=== PATIENT | female | born 1965 | race Caucasian/White ===

== ENCOUNTER 2017-10-30 12:14 | Inpatient (IN) | payer BC, OTHER ==
[~2017-10-30] VITALS: Ht 170.2 cm; Wt 61.7 kg
[2017-10-30] VITALS (9 sets, daily range): BP systolic 86–109; BP diastolic 46–70
[2017-10-30] MEDS ORDERED: ONDANSETRON HCL INJ 2 MG/ML VIAL IV STA ×2 (12:33→15:21)
[2017-10-30 12:39] LABS: BASOPHILS # (AUTO) 0.1 (0.0-0.1); BASOPHILS % 0.8 % (0.0-1.0); EOSINOPHILS # (AUTO) 0.1 (0.0-0.4); EOSINOPHILS % 1.6 % (0.0-6.0); HEMATOCRIT 48.6 % (34.2-44.1); HEMOGLOBIN 16.8 g/dL (12.0-16.0); LYMPHOCYTES # (AUTO) 1.4 (1.0-3.2); MEAN CORPUSCULAR HEMOGLOBIN 30.5 pg (28-32); MEAN CORPUSCULAR HGB CONC 34.6 g/dL (31-35); MEAN CORPUSCULAR VOLUME 88.4 fL (81-99); MONOCYTES # (AUTO) 0.4 (0.2-0.8); MONOCYTES % 5.3 % (4.4-11.3); PLATELET COUNT 279 x10e3/uL (140-360); RED CELL DISTRIBUTION WIDTH 12.6 % (11.7-14.4)
[2017-10-30] MEDS ORDERED: MORPHINE SULFATE 5 MG/ML VIAL IV ONE (12:45)
[2017-10-30] MEDS ORDERED: SODIUM CHLORIDE 0.9% 1000ML 1,000 ML IV SCH ×3 (12:45→17:10)
[2017-10-30] MEDS ORDERED: DIATRIZOATE MEGL/DIATRIZOA SOD 30 ML BTL PO ONE (12:51)
[2017-10-30 13:03] LABS: BILIRUBIN,URINE NEGATIVE (NEGATIVE); KETONES,URINE 1+ (NEGATIVE); LEUKOCYTE ESTERASE ,URINE NEGATIVE (NEGATIVE); NITRITE,URINE NEGATIVE (NEGATIVE); URINE UROBILINOGEN 0.2 mg/dL (0.2 - 1)
[2017-10-30 13:07] LABS: CLARITY,URINE SL CLOUDY (CLEAR); COLOR,URINE YELLOW (YELLOW); PROTEIN,URINE DIPSTICK 2+ (NEGATIVE)
[2017-10-30 13:15] LABS: ALANINE AMINOTRANSFERASE 34 IU/L (0-55); ALBUMIN/GLOBULIN RATIO 1.2 (0.8-2.0); ALKALINE PHOSPHATASE 49 IU/L (40-150); AMYLASE 64 U/L (25-125); ANION GAP 14.7 mmol/L (8-16); BLOOD UREA NITROGEN 26 mg/dL (7-26); BUN/CREATININE RATIO 25 (6-25); CALCIUM 9.2 mg/dL (8.4-10.2); CARBON DIOXIDE 24 mmol/L (22-29); CHLORIDE 105 mmol/L (98-107); CREATININE, SERUM 1.02 mg/dL (0.57-1.11); EST GLOMERULAR FILTRATION RATE 57 ML/MIN (60-); GLUCOSE 136 mg/dL (74-118); LIPASE 20 U/L (8-78); POTASSIUM 3.7 mmol/L (3.5-5.1); SODIUM 140 mmol/L (136-145)
[2017-10-30] MEDS ORDERED: MORPHINE SULFATE 2 MG/ML SYR IV STA (13:19)
[2017-10-30 13:31] LABS: EPITHELIAL CELLS,URINE FEW /LPF
[2017-10-30] MEDS ORDERED: SEVOFLURANE INHAL SOLN 250 ML PEN BTL ONE (14:28)
[2017-10-30] MEDS ORDERED: PROPOFOL IV EMULSION 10 MG/ML 20 ML VIAL ONE (14:28)
[2017-10-30] MEDS ORDERED: DEXAMETHASONE SOD PHOS INJ 4 MG/ML VIAL ONE (14:28)
[2017-10-30] MEDS ORDERED: ROCURONIUM BROMIDE 10 MG/ML 5ML VIAL ONE (14:28)
[2017-10-30] MEDS ORDERED: ONDANSETRON HCL INJ 2 MG/ML VIAL ONE (14:28)
[2017-10-30] MEDS ORDERED: SUCCINYLCHOLINE 200 MG/10 ML SYR ONE (14:28)
[2017-10-30] MEDS ORDERED: LIDOCAINE HCL 2% LOCAL INJ 5 ML SDV VIAL INJ ONE (14:28)
[2017-10-30] MEDS ORDERED: KETOROLAC TROMETHAMINE 30 MG/ML VIAL ONE (14:28)
[2017-10-30] MEDS ORDERED: ATROPINE SULFATE 1 MG/ML VIAL ONE (14:28)
[2017-10-30] MEDS ORDERED: ACETAMINOPHEN 1000 MG/100 ML IV ONE (14:28)
[2017-10-30] MEDS ORDERED: IOPAMIDOL 370 MG/ML 200 ML INFUS..BTL INJ ONE (15:08)
[2017-10-30] MEDS ORDERED: SODIUM CHLORIDE 0.9% 50ML 50 ML ONE (15:08)
[2017-10-30] MEDS ORDERED: MIDAZOLAM HCL 2 MG/2 ML VIAL ONE (15:20)
[2017-10-30] MEDS ORDERED: FENTANYL CITRATE/PF 100MCG/2 ML INJ ONE (15:20)
[2017-10-30] MEDS ORDERED: HYDROMORPHONE 1MG/1ML INJ IV STA (15:21)
[2017-10-30] MEDS ORDERED: HYDROMORPHONE 2MG/ML INJ IV ONE ×2 (15:45→17:15)
[2017-10-30] MEDS ORDERED: SODIUM CHLORIDE 0.9% 1000ML 1,000 ML ONE (16:17)
[2017-10-30] MEDS ORDERED: SODIUM CHLORIDE 0.9% 1000ML 1,000 ML IV ONE (16:30)
[2017-10-30] MEDS ORDERED: CEFEPIME HCL 2 GM VIAL IV STA (16:32)
[2017-10-30] MEDS ORDERED: METRONIDAZOLE 500MG/NS 100ML 100 ML IV STA (16:32)
--- NOTE | 2017-10-30 16:37 | Diagnostic Imaging Report ---
PROCEDURE:CT ABDOMEN AND PELVIS WITH CONTRAST COMPARISON:None. INDICATIONS:RLQ PAIN TECHNIQUE: Multidetector CT scanning of the abdomen and pelvis was performed after the administration of 100 cc Isovue 370 IV, 30 cc Gastrografin orally. Coronal and sagittal reformations were obtained. Routine protocol performed. Total exam DLP: 213.33 mGy CM FINDINGS: Lung bases: Lung bases clear. Heart size normal. Liver: There is a dominant mass in the posterior right lobe of the liver measuring 7.1 x 5.3 x 6.0 cm. The a 1.9 x 2.0 x 2.1 cm mass is seen adjacent to the falciform ligament, a 1.7 x 0.8 x 1.2 cm mass is seen in the anterior left lobe and a 2.7 x 2.3 x 2.3 cm mass is seen in the dome of the right lobe. There is also a 1.1 x 1.1 x 1.2 cm mass in the dome of the right lobe. These masses are not characterized on this single phase examination. There is no intrahepatic bile duct dilatation. Biliary: The gallbladder is not visualized, likely representing cholecystectomy although there are no surgical clips present. Spleen: No splenomegaly or splenic mass. Pancreas: No mass or duct dilatation. Adrenal Glands: No adrenal nodules Kidneys: No mass, hydronephrosis or calculus. Symmetric enhancement. Gastrointestinal: There is small bowel dilatation with air and stool seen throughout the colon. Findings suggest ileus. Vasculature: Abdominal aorta, IVC and portal system appear unremarkable. Peritoneum/Retroperitoneum: There is moderate pneumoperitoneum. There is a moderate volume of diffuse ascites in the abdomen extending to the pelvis. Bladder: Urinary bladder appears unremarkable. Reproductive organs: The uterus is anteverted. Adnexa are not well seen. Musculoskeletal: No acute or suspicious bony lesion. Superficial surrounding soft tissue unremarkable. The findings were discussed with Dr. Hassan in the emergency room on 10/30/17 at 4:40 PM. CONCLUSION: 1. Pneumoperitoneum, ascites and ileus suggesting viscus perforation. Precise source is undetermined. 2. Several low density masses are seen the liver with minimal peripheral patchy enhancement. These are not characterized on this single phase scan although they may represent hepatic hemangiomata. Recommend liver mass protocol CT or MRI for further evaluation. Dictated by: Carlos Soto M.D. on 10/30/2017 at 16:46 Electronically approved by: Carlos Soto M.D. on 10/30/2017 at 16:46
[2017-10-30] MEDS ORDERED: ONDANSETRON HCL INJ 2 MG/ML VIAL IV PRN (17:15)
[2017-10-30] MEDS ORDERED: HYDROMORPHONE 1MG/1ML INJ IV PRN ×2 (17:15→17:30)
[2017-10-30] MEDS ORDERED: HYDROMORPHONE 2MG/ML INJ ONE ×2 (17:27→19:57)
--- NOTE | 2017-10-30 17:50 | Consultation ---
DATE OF CONSULTATION: October 30, 2017 CHIEF COMPLAINT: Abdominal pain. HISTORY OF PRESENT ILLNESS: The patient is a 52-year-old female who developed sudden onset of lower abdominal pain that started this morning. She got progressively worse as the day was going on. She came to the emergency room where evaluation with CT of the abdomen and pelvis revealed a large amount of free intraperitoneal fluid and moderate pneumoperitoneum. Patient has been having normal bowel movements, although the says that the caliber is decreased. She not noticed any blood in the stool. She has some nausea at this time, no vomiting. She has not had similar pains in the past. PAST MEDICAL HISTORY: Significant for previous cholecystectomy. She denies any chronic medical problems. ALLERGIES: SHE HAS AN ALLERGY TO CODEINE. FAMILY HISTORY: Noncontributory. SOCIAL HISTORY: The patient is a former smoker and quit many years ago. Does not drink alcohol either. She is . REVIEW OF SYSTEMS: As stated above. She has not had any fever or weight loss. PHYSICAL EXAMINATION: GENERAL: The patient is awake and alert. VITAL SIGNS: The heart rate is 98. Blood pressure is 100/60. O2 saturation is 98%. HEENT: Reveals no scleral icterus. NECK: Has no masses. CHEST: Equal breath sounds are clear bilaterally. CARDIOVASCULAR: Regular rate and rhythm with no murmur. ABDOMEN: Diffusely tender with diffuse signs of peritonitis. There is no distention. There is no mass. EXTREMITIES: Have no edema. LAB TESTS: The white blood cell count is 7.93 with a left-shifted differential, hemoglobin 16.8, hematocrit 48.6. Chemistries revealed BUN of 26, creatinine 1.02. Bicarbonate level was normal. Lipase was normal. Liver function tests were normal. ASSESSMENT: This is a 52-year-old female with perforated hollow viscus with peritonitis. She will need surgery to treat the underlying problem. It is not clear whether it is a perforated colon or ulcer, though CT scan is more suggestive of perforated colon. Clinical course is more suggestive of perforated colon. The patient is aware that she may require a temporary colostomy. Proposed surgery was explained to the patient including risks, benefits and alternatives. She understands the procedure. She has had the opportunity to ask questions. Job#: [id number] EV
[2017-10-30] MEDS: METRONIDAZOLE 500MG/NS 100ML 100 ML IV SCH (18:00)
[2017-10-30] MEDS ORDERED: METRONIDAZOLE 500MG/NS 100ML IV SCH (18:00)
[2017-10-30] MEDS ORDERED: DIPHENHYDRAMINE HCL INJ 50 MG/ML VIAL IM PRN (19:00)
[2017-10-30] MEDS ORDERED: ACETAMINOPHEN 1000 MG/100 ML IV PRN (19:00)
[2017-10-30] MEDS ORDERED: NALOXONE HCL INJ 0.4 MG/ML AMP IV PRN (19:00)
[2017-10-30] MEDS: SODIUM CHLORIDE 0.9% 250ML IRRIG IR SCH ×2 (19:00→22:45)
[2017-10-30] MEDS ORDERED: HYDROMORPHONE 0.2MG/ML-SOD CHL 30ML PCA SYRINGE IV ONE (20:03)
[2017-10-30] MEDS: LACTATED RINGER'S 1,000 ML IV SCH (21:08)
[2017-10-30] MEDS ORDERED: CEFEPIME HCL 2 GM VIAL IV SCH (22:00)
[2017-10-30] MEDS ORDERED: SODIUM CHLORIDE 0.9% 100 ML 100 ML ONE (22:23)
[2017-10-31] VITALS (51 sets, daily range): BP systolic 70–117; BP diastolic 40–90
[2017-10-31] MEDS ORDERED: METRONIDAZOLE 500MG/NS 100ML 100 ML IV SCH
[2017-10-31] MEDS: LACTATED RINGER'S 1,000 ML IV SCH ×4 (01:40→22:05)
--- NOTE | 2017-10-31 03:09 | Operative Report ---
DATE OF PROCEDURE: October 30, 2017 PREOPERATIVE DIAGNOSIS: Perforated hollow viscus peritonitis. POSTOPERATIVE DIAGNOSIS: Perforated hollow viscus peritonitis secondary to a perforated sigmoid colon with fecal peritonitis. PROCEDURES 1. Exploratory laparotomy. 2. Sigmoid colon resection with end colostomy Lafleur's pouch. TITLE I TEACHER: None. ANESTHESIA: General endotracheal. INDICATIONS AND FINDINGS: Patient is a 52-year-old female, who had sudden onset of severe lower abdominal pain. Earlier today, workup revealed free intraperitoneal air and fluid. On surgery, there was gross fecal contamination of the peritoneal cavity with solid stool and purulent fluid throughout the peritoneal cavity. There was a large amount stool within the colon. There was a perforation in the mid sigmoid colon, which was about 3 cm in diameter. The small bowel had some inflammatory changes, otherwise appeared viable, as did the remainder of the colon. TECHNIQUE: After adequate general endotracheal anesthesia, patient in supine position, the abdomen was prepped and draped in sterile fashion with Bristol solution. Through lower midline incision, peritoneal cavity was entered. There was brandan fecal contamination of the peritoneal cavity with solid stool and purulent fluid throughout the lower abdomen and throughout the entire peritoneal cavity. Stool was evacuated. The sigmoid colon delivered up and the wound was found to be a large perforation in the mid sigmoid colon with large amount of stool in the proximal colon. There was no mass in the colon; however, there were some changes of diverticulitis and diverticulosis. The segment of colon, which was perforated, was resected off the colon proximally. This was divided with MIKA stapler. The colon distal to this was relatively collapsed, was divided with MIKA stapler also. Mesentery was divided between clamps and also portions divided with EnSeal device and the mid sigmoid colon was removed. The clamped mesenteric vessels were ligated with 2-0 silk. The distal colon was marked with long sutures of 3-0 Prolene. This appeared viable, but there was some solid stool within the distal colon also. The peritoneal cavity was irrigated with large amount of warm saline until the aspirate was clear. Approximately 10 L of fluid was used to irrigate the peritoneal cavity until all the fecal fluid was removed. A shawnee of skin was removed from the left side of the abdomen and then, it was carried down through subcutaneous tissue until the fascia was seen. The fascia was opened in cruciate fashion. Muscle and fibers were split and the peritoneum was opened. The end of the proximal sigmoid colon delivered up into the wound to be matured as a colostomy. Peritoneal cavity was irrigated further with saline. All fluid aspirated and inspected for hemostasis, which was seen to be adequate. The midline fascia was then closed with running suture of #1 PDS, skin and subcutaneous tissue was left open, dressed with saline-moistened gauze and sterile dressing applied. Colostomy was matured. The colon opened and sutures taken from the skin to the opened colon using interrupted sutures of 3-0 Vicryl. The colostomy appliance was then applied. The patient remained stable throughout the procedure. Estimated blood loss was 100 mL. There were no complications. All counts were correct. Patient was taken to the recovery room in satisfactory condition. Job#: [id number] MTDD
[2017-10-31] MEDS: SODIUM CHLORIDE 0.9% 250ML IRRIG IR SCH ×6 (03:53→23:09)
[2017-10-31 06:02] LABS: BASOPHILS % 0.7 % (0.0-1.0); EOSINOPHILS # (AUTO) 0.1 (0.0-0.4); EOSINOPHILS % 2.9 % (0.0-6.0); HEMOGLOBIN 17.3 g/dL (12.0-16.0); LYMPHOCYTES # (AUTO) 0.3 (1.0-3.2); LYMPHOCYTES % 7.1 % (18.0-39.1); MEAN CORPUSCULAR HEMOGLOBIN 30.6 pg (28-32); MEAN CORPUSCULAR HGB CONC 33.9 g/dL (31-35); MEAN CORPUSCULAR VOLUME 90.1 fL (81-99); MONOCYTES # (AUTO) 0.3 (0.2-0.8); NEUTROPHILS # (AUTO) 3.3 (2.1-6.9); NEUTROPHILS % 80.3 % (38.7-80.0); PLATELET COUNT 220 x10e3/uL (140-360); RED BLOOD COUNT 5.66 x10e6/uL (3.6-5.1); RED CELL DISTRIBUTION WIDTH 13.2 % (11.7-14.4)
[2017-10-31 06:26] LABS: ALBUMIN 2.5 g/dL (3.5-5.0); CALCIUM 7.7 mg/dL (8.4-10.2); CREATININE, SERUM 1.72 mg/dL (0.57-1.11)
[2017-10-31] MEDS: METRONIDAZOLE 500MG/NS 100ML 100 ML IV SCH ×5 (06:26→23:59)
[2017-10-31] MEDS: CEFEPIME 2 GM/NS 0.9% 100 ML 100 ML IV SCH ×3 (07:18→22:13)
[2017-10-31] MEDS: HYDROMORPHONE 0.2MG/ML-SOD CHL 30ML PCA SYRINGE IV PRN (12:12)
[2017-10-31 12:21] LABS: INR 1.68; PROTHROMBIN TIME 20.7 seconds (11.9-14.5)
[2017-10-31 12:22] LABS: PARTIAL THROMBOPLASTIN TIME 36.9 seconds (23.8-35.5)
--- NOTE | 2017-10-31 13:02 | Consultation ---
DATE OF CONSULTATION: PULMONARY CRITICAL CARE CONSULTATION CHIEF COMPLAINT: Patient presented with abdominal pain and was found to have pneumoperitoneum, perforated hollow viscus peritonitis, perforated sigmoid colon. HPI: Ms. Ortega is a 52-year-old female. She is admitted to ICU postoperatively. Patient underwent repair of the perforated sigmoid colon. She developed fecal peritonitis with perforated viscus. Patient underwent colostomy and she is in ICU. She does not have any known medical problems. She denies any complaints of chest pain or abdominal pain. She has hypotension. Postoperatively, she has received IV fluids and is on lactated Ringer's at 150 mL an hour and IV antibiotics. She denies any chest pain, nausea, vomiting. PHYSICAL EXAMINATION VITAL SIGNS: Temperature 98.2, pulse of 98, blood pressure 78/60, respiratory rate of 18, O2 sat 96% on 2 liters. SKIN: Warm and dry. CHEST: Clear to auscultation bilaterally. No wheezing. No crackles. HEART: S1, S2 audible. ABDOMEN: Dressed. Patient has a colostomy. EXTREMITIES: No pedal edema. NEUROLOGIC: Awake and alert. LABORATORY DATA: Sodium 141, potassium 5.0, chloride 115, BUN 34, creatinine 1.72. White count of 4.1, hemoglobin 7.3, platelets 220. Gram stain and would culture is growing gram-negative rods. CT of the abdomen and pelvis was done in the emergency room, which is showing pneumoperitoneum. Operative report shows patient underwent repair of sigmoid colon with washout for fecal peritonitis. ASSESSMENT 1. Fecal peritonitis. 2. Perforated sigmoid colon. 3. Hypotension likely septic shock due to fecal peritonitis. PLAN 1. Continue the patient on IV lactated Ringer's as ordered. 2. IV antibiotics, cefepime and Flagyl. 3. Will get a central line. Patient may need vasopressors. Continue the patient on IV lactated Ringer's for now. Diet when okay with surgery. Job#: [id number] ELIDA
--- NOTE | 2017-10-31 13:37 | Diagnostic Imaging Report ---
PROCEDURE: A single AP view of the chest. COMPARISON: None. INDICATIONS: CENTRAL LINE PLACEMENT FINDINGS: Lines/tubes: Right internal jugular temporary central venous catheter with tip projecting over the expected region of the right atrium. Enteric feeding catheter with tip projecting over the expected region of the mid gastric body. Lungs: Bibasilar atelectasis. No parenchymal mass. Pleura: Small bilateral pleural effusions. No pneumothorax. Heart and mediastinum: The heart and the mediastinum are unremarkable. Bones: No acute bony abnormality. IMPRESSION: Small bilateral pleural effusions. Dictated by: Samir Mckeon M.D. on 10/31/2017 at 13:46 Electronically approved by: Samir Mckeon M.D. on 10/31/2017 at 13:46
[2017-10-31] MEDS ORDERED: SODIUM CHLORIDE 0.9% 1000ML 1,000 ML ONE (13:59)
--- NOTE | 2017-10-31 14:01 | Diagnostic Imaging Report ---
PROCEDURE:ULTRASOUND GUIDANCE FOR VASCULAR ACCESS COMPARISON:None. INDICATIONS:Central Line Placement FINDINGS:Right internal jugular vein is noted to be patent. Ultrasound guidance was utilized for access for central venous catheter placement. CONCLUSION:Patent right internal jugular vein. Successful ultrasound guidance for central venous catheter placement. Dictated by: Samir Mckeon M.D. on 10/31/2017 at 14:10 Electronically approved by: Samir Mckeon M.D. on 10/31/2017 at 14:10
--- NOTE | 2017-10-31 14:07 | Diagnostic Imaging Report ---
PROCEDURE:NON-TUNNELLED CVC CATH PLACMNT COMPARISON:None. INDICATIONS: Central Line Placement COMPLICATIONS: None. MEDICATIONS: None. BLOOD LOSS: None. PROCEDURE: The procedure was performed at the bedside in the intensive care unit. Ultrasonographic evaluation demonstrated a patent compressible right internal jugular vein. A safe approach was determined. The right neck was prepped and draped in the usual sterile fashion. 1% lidocaine was infused into the subcutaneous tissues for local anesthesia. Utilizing ultrasound guidance, a 21 gauge needle was advanced into the right internal jugular vein. A 0.018 inch wire was advanced centrally. An access sheath was placed over the wire to secure the vascular access. The wire was upsized to a 0.035 wire. A single dilation was performed over the wire. A triple lumen temporary central venous catheter was advanced over the wire. The wire was removed. The catheter lumens demonstrated proper function with aspiration and flush of sterile saline. The catheter lumens were flushed with sterile saline. The catheter was secured to the skin with 3-0 Ethilon suture. A sterile dressing was applied. There were no immediate complications. The patient tolerated the procedure well. The patient remained in the intensive care unit in stable but critical condition. CONCLUSION: Successful placement of a right internal jugular temporary central venous catheter utilizing ultrasound guidance. Dictated by: Samir Mckeon M.D. on 10/31/2017 at 14:16 Electronically approved by: Samir Mckeon M.D. on 10/31/2017 at 14:16
[2017-10-31] MEDS: SODIUM CHLORIDE 0.9% 1000ML 1,000 ML IV SCH (16:30)
[2017-10-31] MEDS: FAMOTIDINE 20 MG/2 ML VIAL IV SCH (17:18)
[2017-10-31] MEDS: ENOXAPARIN SOD INJ 40 MG/0.4 ML SYR SC SCH (17:18)
[2017-10-31] MEDS: KETOROLAC TROMETHAMINE 30 MG/ML VIAL IV PRN (17:45)
--- NOTE | 2017-10-31 18:03 | History and Physical ---
PRIMARY CARE PHYSICIAN: The patient has no primary care physician. CHIEF COMPLAINT: Abdominal pain. HISTORY OF PRESENT ILLNESS: Ms. Ortega is a 52-year-old lady with no past medical history, very active, works out every day. She presented with sudden onset of lower abdominal, severe sharp, stabbing pain. On evaluation was found to have air and fluid in the peritoneal cavity suggestive of perforated viscus and the patient was taken directly to the OR by the surgeon who found a perforation in the colon, possibly related to diverticulosis or diverticulitis which was oversewn, and the patient was sent to the ICU with an NG tube in place for antibiotic coverage. REVIEW OF SYSTEMS: She denies fever, chills or weight loss. She denies sinus congestion or sore throat. She denies chest pain or palpitation. She denies shortness breath, wheezing or cough. She had abdominal pain as noted. Denied nausea, vomiting or diarrhea. She denied dysuria or flank pain. Denied rash or pruritus. Denies joint pain or swelling. Denied bleeding or bruising. Denies headache, vertigo or loss of consciousness. She denies depression, agitation, homicidal or suicidal ideation. PAST MEDICAL HISTORY: Negative. The patient is on no medications. She has a history of cholecystectomy in the past. ALLERGIES: She has a stated allergy to codeine. FAMILY HISTORY: Unremarkable. No chronic medical illnesses. SOCIAL HISTORY: The patient is . Here with her . She does not smoke, drink or use illegal drugs. She is generally independently functioning. PHYSICAL EXAM: PSYCHIATRIC: She is alert and oriented times 3 with normal mood and affect. CONSTITUTIONAL: She has a normal body habitus. Is in no acute distress. VITAL SIGNS: Blood pressure 88/52. Pulse 90 and regular. Respiratory rate 16. O2 sat 100% with 2 liter nasal cannula. Temperature 98.2. HEENT: Head is atraumatic. Eyes are anicteric with clear conjunctivae. Ears and nares are without erythema or discharge. Oropharynx is clear. NECK: Is supple with no mass or thyromegaly. LYMPHATIC SYSTEM: She has no palpable cervical, axillary or inguinal adenopathy. CARDIOVASCULAR: Her heart has a regular rate and rhythm without murmur or extra heart sounds. She has no peripheral edema. She has palpable dorsal pedal pulse. RESPIRATORY: Lungs are clear to auscultation and percussion with normal respiratory effort. GASTROINTESTINAL: Abdomen is soft without organomegaly or masses. She has mild postoperative tenderness and intact surgical dressing that is clean, dry and intact. CUTANEOUS: Her skin is warm and dry to touch with no rash or skin breakdown. MUSCULOSKELETAL: Joints are normal alignment without erythema or swelling. She has no calf tenderness. NEUROLOGIC: Exam is nonfocal with intact cranial nerves and no motor or sensory deficits. DIAGNOSTIC STUDIES: test was negative. CT scan of the abdomen showed fluid and air in the peritoneum and ileus consistent with a perforated viscus and peritonitis. UA was clear. Chest x-ray showed small bilateral effusions. Peritoneal fluid is growing gram-negative rods. Her CBC showed a white count of 7.93 with 75% neutrophils, 17% lymphocytes, 5% monocytes. Hemoglobin 16.8, hematocrit 48.6 and platelet count 279,000. Her chemistry shows normal electrolytes. CO2 24. Creatinine 1.02. BUN 26. Glucose 136. GFR 57. Calcium is 9.2. After surgery and overnight hydration, the patient's hemoglobin was 17.3, hematocrit 51.0 indicating she is more hemoconcentrated. Her chemistry profile shows a potassium of 5.0. CO2 is 17. Creatinine 1.72. BUN 34 for a GFR of 31. Calcium 7.7. Glucose 110 again indicating volume contraction. Her amylase is 64. Lipase is 20. Transaminases, bilirubin and alkaline phos are normal. Pro time is 20.7 with an INR 1.68. IMPRESSION AND PLAN 1. Perforated colon possibly due to diverticulitis with peritonitis and sepsis. The patient is status post surgical repair currently on IV cefepime and Flagyl with a nasogastric tube in place and n.p.o. 2. For prophylaxis, the patient will be on IV Pepcid and subcutaneous Lovenox. 3. Note, will give an additional one liter bolus, maybe even 2 liter bolus in view of the patient remaining hemoconcentrated in spite of IV fluids. Job#: [id number]
[2017-10-31] MEDS ORDERED: SODIUM CHLORIDE 0.9% 250ML 250 ML ONE (22:04)
[2017-11-01] VITALS (47 sets, daily range): BP systolic 60–131; BP diastolic 39–83
[2017-11-01] MEDS: SODIUM CHLORIDE 0.9% 1000ML 1,000 ML IV SCH (01:49)
[2017-11-01] MEDS: SODIUM CHLORIDE 0.9% 250ML IRRIG IR SCH ×6 (03:00→23:05)
[2017-11-01] MEDS: HYDROMORPHONE 0.2MG/ML-SOD CHL 30ML PCA SYRINGE IV PRN (04:04)
[2017-11-01] MEDS: LACTATED RINGER'S 1,000 ML IV SCH ×2 (04:12→12:03)
[2017-11-01] MEDS: CEFEPIME 2 GM/NS 0.9% 100 ML 100 ML IV SCH ×2 (06:00→14:00)
[2017-11-01 06:21] LABS: HEMATOCRIT 37.4 % (34.2-44.1); MEAN CORPUSCULAR HEMOGLOBIN 30.6 pg (28-32); MEAN CORPUSCULAR HGB CONC 33.4 g/dL (31-35); MEAN CORPUSCULAR VOLUME 91.4 fL (81-99); PLATELET COUNT 145 x10e3/uL (140-360); RED BLOOD COUNT 4.09 x10e6/uL (3.6-5.1); RED CELL DISTRIBUTION WIDTH 13.6 % (11.7-14.4)
[2017-11-01] MEDS: METRONIDAZOLE 500MG/NS 100ML 100 ML IV SCH ×3 (06:30→18:00)
[2017-11-01 06:37] LABS: HEMOGLOBIN 12.5 g/dL (12.0-16.0)
[2017-11-01 06:45] LABS: ALANINE AMINOTRANSFERASE 41 IU/L (0-55); ALBUMIN 2.1 g/dL (3.5-5.0); ALBUMIN/GLOBULIN RATIO 0.9 (0.8-2.0); ALKALINE PHOSPHATASE 40 IU/L (40-150); ANION GAP 10.9 mmol/L (8-16); BLOOD UREA NITROGEN 22 mg/dL (7-26); BUN/CREATININE RATIO 27 (6-25); CALCIUM 7.7 mg/dL (8.4-10.2); CARBON DIOXIDE 23 mmol/L (22-29); CHLORIDE 113 mmol/L (98-107); CREATININE, SERUM 0.83 mg/dL (0.57-1.11); EST GLOMERULAR FILTRATION RATE > 60 ML/MIN (60-); GLUCOSE 88 mg/dL (74-118); POTASSIUM 4.9 mmol/L (3.5-5.1); SODIUM 142 mmol/L (136-145)
[2017-11-01 07:35] LABS: BAND NEUTROPHILS % (MANUAL) 14 %; EOSINOPHILS % (MANUAL) 2 % (0-7); LYMPHOCYTES % (MANUAL) 4 % (19-48); METAMYELOCYTES % (MANUAL) 2 % (0-0); MONOCYTES % (MANUAL) 1 % (3.4-9.0); NEUTROPHILS % (MANUAL) 77 % (40-74); PLATELET ESTIMATE ADEQUATE
[2017-11-01 07:36] LABS: PLATELET MORPHOLOGY COMMENT NORMAL; RBC MORPHOLOGY COMMENT NORMAL
[2017-11-01] MEDS: KETOROLAC TROMETHAMINE 30 MG/ML VIAL IV PRN ×4 (08:51→23:05)
[2017-11-01] MEDS: FAMOTIDINE 20 MG/2 ML VIAL IV SCH ×2 (09:00→17:05)
[2017-11-01] MEDS ORDERED: DEXTROSE 5%/0.45% SOD CHL 1,000 ML IV ONE (16:00)
[2017-11-01] MEDS: DEXTROSE 5%/0.45% SOD CHL 1,000 ML IV SCH (16:59)
[2017-11-01] MEDS: ENOXAPARIN SOD INJ 40 MG/0.4 ML SYR SC SCH (17:05)
[2017-11-01] MEDS: ONDANSETRON HCL INJ 2 MG/ML VIAL IV PRN (20:04)
[2017-11-01] MEDS: CEFEPIME HCL 2 GM VIAL IV SCH (22:38)
[2017-11-02] VITALS (29 sets, daily range): BP systolic 89–133; BP diastolic 31–89
[2017-11-02] MEDS: ONDANSETRON HCL INJ 2 MG/ML VIAL IV PRN ×3 (01:06→11:45)
[2017-11-02] MEDS: METRONIDAZOLE 500MG/NS 100ML 100 ML IV SCH ×4 (01:06→17:14)
[2017-11-02] MEDS: SODIUM CHLORIDE 0.9% 250ML IRRIG IR SCH ×4 (05:16→14:42)
[2017-11-02] MEDS: CEFEPIME HCL 2 GM VIAL IV SCH ×3 (05:16→22:10)
[2017-11-02] MEDS: KETOROLAC TROMETHAMINE 30 MG/ML VIAL IV PRN ×3 (05:17→18:57)
[2017-11-02 05:56] LABS: HEMATOCRIT 33.5 % (34.2-44.1); HEMOGLOBIN 11.3 g/dL (12.0-16.0); MEAN CORPUSCULAR HEMOGLOBIN 30.6 pg (28-32); MEAN CORPUSCULAR HGB CONC 33.7 g/dL (31-35); MEAN CORPUSCULAR VOLUME 90.8 fL (81-99); PLATELET COUNT 136 x10e3/uL (140-360); RED BLOOD COUNT 3.69 x10e6/uL (3.6-5.1); RED CELL DISTRIBUTION WIDTH 13.8 % (11.7-14.4)
[2017-11-02 06:14] LABS: ANION GAP 8.9 mmol/L (8-16); BLOOD UREA NITROGEN 19 mg/dL (7-26); BUN/CREATININE RATIO 27 (6-25); CARBON DIOXIDE 25 mmol/L (22-29); CHLORIDE 112 mmol/L (98-107); CREATININE, SERUM 0.71 mg/dL (0.57-1.11); EST GLOMERULAR FILTRATION RATE > 60 ML/MIN (60-); GLUCOSE 107 mg/dL (74-118); POTASSIUM 3.9 mmol/L (3.5-5.1); SODIUM 142 mmol/L (136-145)
[2017-11-02] MEDS: HYDROMORPHONE 0.2MG/ML-SOD CHL 30ML PCA SYRINGE IV PRN (07:02)
[2017-11-02] MEDS: FAMOTIDINE 20 MG/2 ML VIAL IV SCH ×2 (09:03→17:14)
[2017-11-02] MEDS: DEXTROSE 5%/0.45% SOD CHL 1,000 ML IV SCH ×2 (10:30→18:40)
[2017-11-02] MEDS ORDERED: HYDROCODONE/APAP 7.5MG-325MG 1 EA TAB PO PRN (14:15)
[2017-11-02] MEDS: ENOXAPARIN SOD INJ 40 MG/0.4 ML SYR SC SCH (17:14)
[2017-11-02] MEDS ORDERED: ACETAMINOPHEN 325 MG TAB PO PRN (17:30)
[2017-11-03] VITALS: BP 129/75
[2017-11-03] MEDS: TRAMADOL HCL 50 MG TAB PO PRN ×4 (01:56→22:13)
[2017-11-03] MEDS: ONDANSETRON HCL INJ 2 MG/ML VIAL IV PRN ×4 (02:15→20:36)
[2017-11-03] MEDS: DEXTROSE 5%/0.45% SOD CHL 1,000 ML IV SCH ×2 (02:42→08:00)
[2017-11-03 04:00] VITALS: BP 124/75
[2017-11-03] MEDS: KETOROLAC TROMETHAMINE 30 MG/ML VIAL IV PRN ×3 (05:03→20:36)
[2017-11-03] MEDS: METRONIDAZOLE 500MG/NS 100ML 100 ML IV SCH ×5 (05:41→23:44)
[2017-11-03] MEDS: CEFEPIME HCL 2 GM VIAL IV SCH ×3 (05:41→21:43)
[2017-11-03 07:02] LABS: BASOPHILS % 0.5 % (0.0-1.0); EOSINOPHILS # (AUTO) 0.1 (0.0-0.4); EOSINOPHILS % 1.3 % (0.0-6.0); HEMATOCRIT 33.6 % (34.2-44.1); HEMOGLOBIN 11.4 g/dL (12.0-16.0); LYMPHOCYTES # (AUTO) 0.5 (1.0-3.2); LYMPHOCYTES % 6.7 % (18.0-39.1); MEAN CORPUSCULAR HEMOGLOBIN 30.3 pg (28-32); MEAN CORPUSCULAR HGB CONC 33.9 g/dL (31-35); MEAN CORPUSCULAR VOLUME 89.4 fL (81-99); MONOCYTES # (AUTO) 0.5 (0.2-0.8); NEUTROPHILS # (AUTO) 6.6 (2.1-6.9); NEUTROPHILS % 84.7 % (38.7-80.0); PLATELET COUNT 160 x10e3/uL (140-360); RED BLOOD COUNT 3.76 x10e6/uL (3.6-5.1); RED CELL DISTRIBUTION WIDTH 13.7 % (11.7-14.4)
[2017-11-03 07:36] LABS: ANION GAP 7.3 mmol/L (8-16); BLOOD UREA NITROGEN 17 mg/dL (7-26); BUN/CREATININE RATIO 25 (6-25); CALCIUM 8.1 mg/dL (8.4-10.2); CARBON DIOXIDE 26 mmol/L (22-29); CHLORIDE 111 mmol/L (98-107); CREATININE, SERUM 0.69 mg/dL (0.57-1.11); EST GLOMERULAR FILTRATION RATE > 60 ML/MIN (60-); GLUCOSE 95 mg/dL (74-118); MAGNESIUM 1.4 MG/DL (1.3-2.1); POTASSIUM 3.3 mmol/L (3.5-5.1); SODIUM 141 mmol/L (136-145)
[2017-11-03] MEDS: FAMOTIDINE 20 MG/2 ML VIAL IV SCH ×2 (07:56→17:13)
[2017-11-03 08:13] VITALS: BP 113/69
[2017-11-03] MEDS ORDERED: POTASSIUM CHLORIDE 20 MEQ TAB CR PO STA (12:14)
[2017-11-03] MEDS: GUAIFENESIN 600 MG TAB PO SCH ×3 (12:15→23:44)
[2017-11-03] MEDS ORDERED: GUAIFENESIN 600 MG TAB PO PRN (12:15)
[2017-11-03 12:20] VITALS: BP 122/78
[2017-11-03] MEDS ORDERED: FUROSEMIDE INJ 10 MG/ML 4 ML VIAL IV ONE (13:00)
[2017-11-03] MEDS ORDERED: CALCIUM GLUCONATE 10% INJ 4.65 MEQ in SODIUM CHLORIDE 0.9% 50ML 50 ML IV ONE (13:00)
[2017-11-03] MEDS ORDERED: POTASSIUM CHL 40 MEQ in WATER STERILE 10ML VIAL 80 ML IV ONE (13:30)
[2017-11-03] MEDS ORDERED: POTASSIUM CHLORIDE 20MEQ/100ML 100 ML IV ONE (14:00)
[2017-11-03 16:04] VITALS: BP 126/67
[2017-11-03] MEDS: CALCIUM CARBONATE 500 MG CHEWABLE TABS PO SCH (17:00)
[2017-11-03] MEDS: ASCORBIC ACID 500 MG TAB PO SCH (17:00)
[2017-11-03] MEDS: FERROUS SULFATE 325 MG TAB PO SCH (17:00)
[2017-11-03] MEDS: ENOXAPARIN SOD INJ 40 MG/0.4 ML SYR SC SCH (17:13)
[2017-11-03 20:06] VITALS: BP 124/69
[2017-11-03] MEDS ORDERED: SODIUM CHLORIDE 0.9% 250ML 250 ML ONE (23:44)
[2017-11-04] VITALS: BP 130/71
[2017-11-04 04:00] VITALS: BP 143/81
[2017-11-04] MEDS: KETOROLAC TROMETHAMINE 30 MG/ML VIAL IV PRN ×4 (04:54→23:30)
[2017-11-04 05:06] LABS: BASOPHILS # (AUTO) 0.1 (0.0-0.1); BASOPHILS % 0.9 % (0.0-1.0); EOSINOPHILS # (AUTO) 0.1 (0.0-0.4); EOSINOPHILS % 1.5 % (0.0-6.0); HEMATOCRIT 36.1 % (34.2-44.1); HEMOGLOBIN 12.5 g/dL (12.0-16.0); LYMPHOCYTES # (AUTO) 0.8 (1.0-3.2); LYMPHOCYTES % 8.4 % (18.0-39.1); MEAN CORPUSCULAR HEMOGLOBIN 30.4 pg (28-32); MEAN CORPUSCULAR HGB CONC 34.6 g/dL (31-35); MEAN CORPUSCULAR VOLUME 87.8 fL (81-99); MONOCYTES # (AUTO) 1.1 (0.2-0.8); MONOCYTES % 12.8 % (4.4-11.3); NEUTROPHILS # (AUTO) 6.6 (2.1-6.9); NEUTROPHILS % 73.2 % (38.7-80.0); PLATELET COUNT 176 x10e3/uL (140-360); RED BLOOD COUNT 4.11 x10e6/uL (3.6-5.1); RED CELL DISTRIBUTION WIDTH 13.7 % (11.7-14.4)
[2017-11-04 05:20] LABS: ANION GAP 7.4 mmol/L (8-16); BLOOD UREA NITROGEN 15 mg/dL (7-26); BUN/CREATININE RATIO 23 (6-25); CALCIUM 7.9 mg/dL (8.4-10.2); CARBON DIOXIDE 25 mmol/L (22-29); CHLORIDE 107 mmol/L (98-107); CREATININE, SERUM 0.66 mg/dL (0.57-1.11); EST GLOMERULAR FILTRATION RATE > 60 ML/MIN (60-); GLUCOSE 84 mg/dL (74-118); POTASSIUM 3.4 mmol/L (3.5-5.1); SODIUM 136 mmol/L (136-145)
[2017-11-04 05:26] LABS: MAGNESIUM 1.1 MG/DL (1.3-2.1)
[2017-11-04] MEDS: METRONIDAZOLE 500MG/NS 100ML 100 ML IV SCH ×4 (05:39→23:30)
[2017-11-04] MEDS: CEFEPIME HCL 2 GM VIAL IV SCH ×3 (05:39→21:33)
[2017-11-04] MEDS: GUAIFENESIN 600 MG TAB PO SCH ×4 (05:39→23:30)
[2017-11-04] MEDS ORDERED: POTASSIUM CHLORIDE 20MEQ/100ML 100 ML IV ONE ×2 (06:45→09:15)
[2017-11-04] MEDS ORDERED: MAGNESIUM SULFATE 2GM/50ML 50 ML IV ONE ×2 (06:45→09:15)
[2017-11-04 08:36] LABS: BAND NEUTROPHILS % (MANUAL) 4 %; EOSINOPHILS % (MANUAL) 4 % (0-7); LYMPHOCYTES % (MANUAL) 7 % (19-48); METAMYELOCYTES % (MANUAL) 2 % (0-0); MONOCYTES % (MANUAL) 11 % (3.4-9.0); MYELOCYTES % (MANUAL) 1 % (0-0); NEUTROPHILS % (MANUAL) 67 % (40-74)
[2017-11-04 08:38] LABS: ANISOCYTOSIS SLIGHT; PLATELET ESTIMATE ADEQUATE; PLATELET MORPHOLOGY COMMENT FEW GIANT; POIKILOCYTOSIS SLIGHT
[2017-11-04 08:43] LABS: RBC MORPHOLOGY COMMENT NORMAL
[2017-11-04] MEDS: MULTIVITAMINS/MINERALS TAB PO SCH (09:00)
[2017-11-04] MEDS: FAMOTIDINE 20 MG/2 ML VIAL IV SCH ×2 (09:00→17:53)
[2017-11-04] MEDS: FERROUS SULFATE 325 MG TAB PO SCH ×2 (09:00→17:53)
[2017-11-04] MEDS: CALCIUM CARBONATE 500 MG CHEWABLE TABS PO SCH ×2 (09:01→17:53)
[2017-11-04] MEDS: ASCORBIC ACID 500 MG TAB PO SCH ×2 (09:01→17:53)
[2017-11-04] MEDS: TRAMADOL HCL 50 MG TAB PO PRN ×2 (09:18→20:03)
[2017-11-04 12:00] VITALS: BP 145/76
--- NOTE | 2017-11-04 14:42 | Diagnostic Imaging Report ---
Two view chest x-ray INDICATION: Right shoulder pain COMPARISON: 10/31/2017. FINDINGS: The cardiomediastinal silhouette is mildly enlarged and stable. A right subclavian catheter terminates in the right atrium. There is no evidence of hilar lymphadenopathy. The pulmonary vascular markings are normal. Bilateral costophrenic angle blunting has progressed. There is bibasilar atelectasis. Evaluation of the osseous structures demonstrates no focal abnormality. IMPRESSION: Bibasilar pleural effusions and atelectasis. No vascular congestion. Signed by: Dr. Nato Lopez MD on 11/04/2017 2:38 PM
[2017-11-04 16:31] VITALS: BP 131/76
[2017-11-04] MEDS: ENOXAPARIN SOD INJ 40 MG/0.4 ML SYR SC SCH (17:53)
[2017-11-04] MEDS: ONDANSETRON HCL INJ 2 MG/ML VIAL IV PRN ×2 (17:56→21:33)
[2017-11-04 20:00] VITALS: BP 137/75
[2017-11-04] MEDS ORDERED: SODIUM CHLORIDE 0.9% 50ML 50 ML ONE (23:19)
[2017-11-05] VITALS (10 sets, daily range): BP systolic 122–144; BP diastolic 60–86
[2017-11-05] MEDS: METRONIDAZOLE 500MG/NS 100ML 100 ML IV SCH ×4 (05:31→23:59)
[2017-11-05] MEDS: CEFEPIME HCL 2 GM VIAL IV SCH (05:31)
[2017-11-05] MEDS: GUAIFENESIN 600 MG TAB PO SCH ×4 (05:31→23:59)
[2017-11-05] MEDS: KETOROLAC TROMETHAMINE 30 MG/ML VIAL IV PRN ×3 (05:32→21:15)
[2017-11-05 07:41] LABS: ANION GAP 9.5 mmol/L (8-16); BASOPHILS # (AUTO) 0.1 (0.0-0.1); BASOPHILS % 0.7 % (0.0-1.0); BLOOD UREA NITROGEN 16 mg/dL (7-26); BUN/CREATININE RATIO 25 (6-25); CALCIUM 7.6 mg/dL (8.4-10.2); CARBON DIOXIDE 24 mmol/L (22-29); CHLORIDE 110 mmol/L (98-107); CREATININE, SERUM 0.63 mg/dL (0.57-1.11); EOSINOPHILS # (AUTO) 0.2 (0.0-0.4); EOSINOPHILS % 1.3 % (0.0-6.0); EST GLOMERULAR FILTRATION RATE > 60 ML/MIN (60-); GLUCOSE 95 mg/dL (74-118); HEMATOCRIT 34.6 % (34.2-44.1); LYMPHOCYTES # (AUTO) 0.8 (1.0-3.2); LYMPHOCYTES % 6.4 % (18.0-39.1); MAGNESIUM 1.4 MG/DL (1.3-2.1); MEAN CORPUSCULAR HEMOGLOBIN 30.6 pg (28-32); MEAN CORPUSCULAR HGB CONC 34.7 g/dL (31-35); MEAN CORPUSCULAR VOLUME 88.3 fL (81-99); MONOCYTES # (AUTO) 1.4 (0.2-0.8); MONOCYTES % 11.3 % (4.4-11.3); NEUTROPHILS # (AUTO) 9.2 (2.1-6.9); NEUTROPHILS % 74.9 % (38.7-80.0); PLATELET COUNT 197 x10e3/uL (140-360); POTASSIUM 3.5 mmol/L (3.5-5.1); RED BLOOD COUNT 3.92 x10e6/uL (3.6-5.1); SODIUM 140 mmol/L (136-145)
[2017-11-05] MEDS: FERROUS SULFATE 325 MG TAB PO SCH ×2 (08:54→18:06)
[2017-11-05] MEDS: MULTIVITAMINS/MINERALS TAB PO SCH (08:55)
[2017-11-05] MEDS: CALCIUM CARBONATE 500 MG CHEWABLE TABS PO SCH ×2 (08:55→18:06)
[2017-11-05] MEDS: ASCORBIC ACID 500 MG TAB PO SCH ×2 (08:55→18:06)
[2017-11-05] MEDS: FAMOTIDINE 20 MG/2 ML VIAL IV SCH ×2 (08:55→18:06)
[2017-11-05] MEDS: ONDANSETRON HCL INJ 2 MG/ML VIAL IV PRN ×3 (09:15→18:28)
[2017-11-05] MEDS ORDERED: POTASSIUM CHLORIDE IV ONE (09:15)
[2017-11-05] MEDS: TRAMADOL HCL 50 MG TAB PO PRN ×3 (09:15→19:52)
[2017-11-05] MEDS ORDERED: SODIUM CHLORIDE 0.9% IV ONE (09:15)
[2017-11-05] MEDS ORDERED: FUROSEMIDE INJ 10 MG/ML 4 ML VIAL IV ONE (09:30)
--- NOTE | 2017-11-05 13:24 | Consultation ---
DATE OF CONSULTATION: REASON FOR CONSULTATION: Leukocytosis, perforated colon, and peritonitis. Recommendation for antibiotic. HISTORY OF PRESENT ILLNESS: This patient, who is a very pleasant 52-year-old white female, comes into the hospital with acute abdominal pain. Patient was admitted to [facility]. The patient came in on October 30 with abdominal pain that started the morning of admission. She came to the emergency room. CT scan showed a large amount of free intraperitoneal fluid with moderate pneumoperitoneum. At that time, the patient was seen by Dr. Baird and underwent surgery. The patient, who has history of cholecystectomy before and former smoking, on October 31 underwent surgery for exploratory laparotomy, sigmoid colon resection and end-colostomy Yas pouch. Her abdominal wound was left open. The patient has been here since then. She states she is feeling better. It was noted today that her white count jumped up to 12,000, so infectious disease was consulted. The patient has been on cefepime and Flagyl since admission. She states that overall she is feeling better. She is thought to have some issues walking. PAST MEDICAL HISTORY: Negative. PAST SURGICAL HISTORY: Mentioned above. ALLERGIES: CODEINE. SOCIAL HISTORY: Currently, no smoking, no drug abuse, no alcohol abuse. FAMILY HISTORY: Noncontributory. REVIEW OF SYSTEMS HEENT: There is no headache, visual changes or hearing changes. GI: There is no nausea, no vomiting, no diarrhea currently. CARDIAC: No chest pain or arrhythmia. PULMONARY: Negative. JOINTS: Negative. SKIN: No rash. OTHER: All systems are within normal limits at the present time. PHYSICAL EXAMINATION GENERAL: She is currently alert and oriented, does not seem to be in acute distress. VITALS: Stable, afebrile. HEENT: She is normocephalic, not icteric. NECK: Supple. No JVD. No lymphadenopathy. No thyromegaly. CHEST: Clear bilateral. COR: S1 and S2. No murmur. ABDOMEN: Soft. Bowel sounds present. She did have a colostomy. Her midline wound looked clean and deep. CULTURES: She grew E. coli, which was pansensitive, as well as Klebsiella pneumonia, which was also pansensitive. LABORATORY DATA: On admission, white count 7.48, today 12.32. Hemoglobin 12. Her sodium 142, potassium 3.9, creatinine 0.7, magnesium low at 1.1. MEDICATIONS: List reviewed. She is on Ultram, Zofran, vitamin C, Tums, Pepcid, cefepime 2 grams q.8 h., metronidazole. IMPRESSION 1. This patient, who came with peritonitis and had perforation of her colon, seems to be better clinically. 2. Leukocytosis, probably reactive. I suggest to decrease the cefepime dose to 1 g q.8 h. Clinically, she looks really good, which, if she continues to improve clinically, we can switch her to oral antibiotic, but I would like to see what happens with her WBC. I would suggest to recheck it again. 3. Continue with PT, OT and wound care. Will follow with you. Thank you for asking me to see this patient. Job#: [id number]
[2017-11-05] MEDS: CEFEPIME HCL 1 GM VIAL IV SCH ×2 (15:05→21:15)
[2017-11-05] MEDS: ENOXAPARIN SOD INJ 40 MG/0.4 ML SYR SC SCH (18:06)
[2017-11-06] VITALS (7 sets, daily range): BP systolic 117–134; BP diastolic 57–66
[2017-11-06] MEDS: METRONIDAZOLE 500MG/NS 100ML 100 ML IV SCH ×3 (06:16→19:50)
[2017-11-06] MEDS: GUAIFENESIN 600 MG TAB PO SCH ×3 (06:16→17:45)
[2017-11-06] MEDS: CEFEPIME HCL 1 GM VIAL IV SCH ×3 (06:16→22:19)
[2017-11-06] MEDS: TRAMADOL HCL 50 MG TAB PO PRN ×5 (06:17→22:58)
[2017-11-06] MEDS: ONDANSETRON HCL INJ 2 MG/ML VIAL IV PRN (06:17)
[2017-11-06 06:30] LABS: BASOPHILS # (AUTO) 0.1 (0.0-0.1); BASOPHILS % 0.5 % (0.0-1.0); EOSINOPHILS # (AUTO) 0.2 (0.0-0.4); EOSINOPHILS % 1.3 % (0.0-6.0); HEMATOCRIT 33.4 % (34.2-44.1); HEMOGLOBIN 11.6 g/dL (12.0-16.0); LYMPHOCYTES # (AUTO) 1.2 (1.0-3.2); LYMPHOCYTES % 7.3 % (18.0-39.1); MEAN CORPUSCULAR HEMOGLOBIN 30.5 pg (28-32); MEAN CORPUSCULAR HGB CONC 34.7 g/dL (31-35); MEAN CORPUSCULAR VOLUME 87.9 fL (81-99); MONOCYTES # (AUTO) 1.5 (0.2-0.8); MONOCYTES % 9.3 % (4.4-11.3); NEUTROPHILS # (AUTO) 12.4 (2.1-6.9); NEUTROPHILS % 75.6 % (38.7-80.0); PLATELET COUNT 244 x10e3/uL (140-360)
[2017-11-06 06:39] LABS: ANION GAP 10.6 mmol/L (8-16); BLOOD UREA NITROGEN 16 mg/dL (7-26); BUN/CREATININE RATIO 25 (6-25); CALCIUM 7.7 mg/dL (8.4-10.2); CARBON DIOXIDE 26 mmol/L (22-29); CHLORIDE 107 mmol/L (98-107); CREATININE, SERUM 0.63 mg/dL (0.57-1.11); EST GLOMERULAR FILTRATION RATE > 60 ML/MIN (60-); GLUCOSE 106 mg/dL (74-118); MAGNESIUM 1.5 MG/DL (1.3-2.1); POTASSIUM 3.6 mmol/L (3.5-5.1); SODIUM 140 mmol/L (136-145)
[2017-11-06] MEDS ORDERED: FUROSEMIDE INJ 10 MG/ML 4 ML VIAL IV ONE (06:50)
[2017-11-06] MEDS ORDERED: CALCIUM GLUCONATE 10% INJ 4.65 MEQ in SODIUM CHLORIDE 0.9% 50ML 50 ML IV ONE ×2 (08:30→20:00)
[2017-11-06] MEDS ORDERED: METOCLOPRAMIDE HCL 10 MG/2ML VIAL ONE (08:37)
[2017-11-06] MEDS: MULTIVITAMINS/MINERALS TAB PO SCH (09:00)
[2017-11-06] MEDS: FERROUS SULFATE 325 MG TAB PO SCH ×2 (09:00→17:45)
[2017-11-06] MEDS: ASCORBIC ACID 500 MG TAB PO SCH ×2 (09:00→17:45)
[2017-11-06] MEDS: FAMOTIDINE 20 MG/2 ML VIAL IV SCH ×2 (09:00→17:00)
[2017-11-06] MEDS: CALCIUM CARBONATE 500 MG CHEWABLE TABS PO SCH ×2 (09:00→17:45)
[2017-11-06 10:21] LABS: BAND NEUTROPHILS % (MANUAL) 3 %; EOSINOPHILS % (MANUAL) 1 % (0-7); LYMPHOCYTES % (MANUAL) 3 % (19-48); MONOCYTES % (MANUAL) 10 % (3.4-9.0); NEUTROPHILS % (MANUAL) 81 % (40-74); PLATELET ESTIMATE ADEQUATE; RBC MORPHOLOGY COMMENT NORMAL; TOXIC GRANULATION SLIGHT
[2017-11-06 10:22] LABS: ANISOCYTOSIS SLIGHT; PLATELET MORPHOLOGY COMMENT FEW LARGE
[2017-11-06] MEDS: METOCLOPRAMIDE HCL 10 MG/2ML VIAL IV SCH ×3 (12:00→21:21)
[2017-11-06] MEDS ORDERED: VANCOMYCIN 1GM/NS 250 ML 250 ML IV SCH (12:15)
[2017-11-06] MEDS: KETOROLAC TROMETHAMINE 30 MG/ML VIAL IV PRN ×2 (13:26→20:34)
--- NOTE | 2017-11-06 14:46 | Diagnostic Imaging Report ---
PROCEDURE: CT scan of the chest WITH intravenous contrast, using PE protocol. TECHNIQUE: The chest was scanned utilizing a multidetector helical scanner from the lung apex through the level of the adrenal glands after the IV administration of 100 cc of Isovue 370. Coronal and sagittal multiplanar reformations were obtained. Pulmonary angiogram protocol was performed. Total DLP: 438.95 mGy-cm COMPARISON: None. INDICATIONS: SOB FINDINGS: Lines/tubes: None. Lungs and Airways: No central pulmonary emboli. Bilateral lower lobe subsegmental compressive atelectasis. Pleura: Small bilateral pleural effusions. Heart and mediastinum: The thyroid gland is normal. No significant mediastinal, hilar or axillary lymphadenopathy is seen. The heart and pericardium are within normal limits. Main pulmonary artery measures 2.5 cm. Ascending aorta measures 2.9 cm. Soft tissues: Normal. Abdomen: Limited contrast-enhanced views of the upper abdomen show no abnormality within the visualized liver, spleen, pancreas, or kidneys. The adrenal glands are normal. Bones: The visualized bony thorax is within normal limits. IMPRESSION: 1. Small bilateral pleural effusions with associated subsegmental compressive atelectasis of both lower lobes. 2. No pulmonary emboli. Dictated by: Guilherme Mo M.D. on 11/06/2017 at 14:54 Electronically approved by: Guilherme Mo M.D. on 11/06/2017 at 14:54
[2017-11-06] MEDS ORDERED: SODIUM CHLORIDE 0.9% 250ML 250 ML ONE (17:00)
[2017-11-06] MEDS: VANCOMYCIN 1GM/NS 250 ML 250 ML IV SCH (17:00)
[2017-11-06] MEDS: ENOXAPARIN SOD INJ 40 MG/0.4 ML SYR SC SCH (17:00)
[2017-11-07] VITALS (7 sets, daily range): BP systolic 136–149; BP diastolic 67–81
[2017-11-07] MEDS: METRONIDAZOLE 500MG/NS 100ML 100 ML IV SCH ×4 (00:43→19:23)
[2017-11-07] MEDS: KETOROLAC TROMETHAMINE 30 MG/ML VIAL IV PRN (02:35)
[2017-11-07] MEDS: VANCOMYCIN 1GM/NS 250 ML 250 ML IV SCH ×2 (04:30→17:32)
[2017-11-07] MEDS: TRAMADOL HCL 50 MG TAB PO PRN (04:48)
[2017-11-07] MEDS: CEFEPIME HCL 1 GM VIAL IV SCH ×3 (05:42→21:41)
[2017-11-07] MEDS: GUAIFENESIN 600 MG TAB PO SCH ×5 (05:43→17:52)
[2017-11-07 05:44] LABS: BASOPHILS # (AUTO) 0.1 (0.0-0.1); BASOPHILS % 0.8 % (0.0-1.0); EOSINOPHILS # (AUTO) 0.2 (0.0-0.4); EOSINOPHILS % 1.1 % (0.0-6.0); HEMOGLOBIN 12.3 g/dL (12.0-16.0); LYMPHOCYTES # (AUTO) 1.3 (1.0-3.2); LYMPHOCYTES % 8.5 % (18.0-39.1); MEAN CORPUSCULAR HEMOGLOBIN 29.9 pg (28-32); MEAN CORPUSCULAR HGB CONC 34.2 g/dL (31-35); MEAN CORPUSCULAR VOLUME 87.4 fL (81-99); MONOCYTES # (AUTO) 1.3 (0.2-0.8); MONOCYTES % 8.5 % (4.4-11.3); NEUTROPHILS # (AUTO) 11.8 (2.1-6.9); PLATELET COUNT 325 x10e3/uL (140-360); RED BLOOD COUNT 4.12 x10e6/uL (3.6-5.1); RED CELL DISTRIBUTION WIDTH 14.1 % (11.7-14.4)
[2017-11-07 06:02] LABS: ANION GAP 10.6 mmol/L (8-16); BLOOD UREA NITROGEN 14 mg/dL (7-26); BUN/CREATININE RATIO 21 (6-25); CALCIUM 8.1 mg/dL (8.4-10.2); CARBON DIOXIDE 26 mmol/L (22-29); CHLORIDE 107 mmol/L (98-107); CREATININE, SERUM 0.67 mg/dL (0.57-1.11); EST GLOMERULAR FILTRATION RATE > 60 ML/MIN (60-); GLUCOSE 111 mg/dL (74-118); POTASSIUM 3.6 mmol/L (3.5-5.1); SODIUM 140 mmol/L (136-145)
[2017-11-07] MEDS: MORPHINE SULFATE 2 MG/ML SYR IV PRN ×4 (06:26→19:40)
[2017-11-07] MEDS: MULTIVITAMINS/MINERALS TAB PO SCH (08:27)
[2017-11-07] MEDS: METOCLOPRAMIDE HCL 10 MG/2ML VIAL IV SCH ×4 (08:27→21:41)
[2017-11-07] MEDS: FAMOTIDINE 20 MG/2 ML VIAL IV SCH ×2 (08:27→17:52)
[2017-11-07] MEDS: ASCORBIC ACID 500 MG TAB PO SCH ×2 (08:27→17:52)
[2017-11-07] MEDS: FERROUS SULFATE 325 MG TAB PO SCH ×2 (08:27→17:52)
[2017-11-07] MEDS: CALCIUM CARBONATE 500 MG CHEWABLE TABS PO SCH ×2 (08:27→17:52)
[2017-11-07 08:35] LABS: BAND NEUTROPHILS % (MANUAL) 1 %; BLAST CELLS % MANUAL 1; EOSINOPHILS % (MANUAL) 2 % (0-7); LYMPHOCYTES % (MANUAL) 5 % (19-48); METAMYELOCYTES % (MANUAL) 1 % (0-0); MONOCYTES % (MANUAL) 10 % (3.4-9.0); MYELOCYTES % (MANUAL) 1 % (0-0); NEUTROPHILS % (MANUAL) 79 % (40-74)
[2017-11-07 08:36] LABS: ANISOCYTOSIS SLIGHT; PLATELET ESTIMATE ADEQUATE; PLATELET MORPHOLOGY COMMENT FEW GIANT
--- NOTE | 2017-11-07 10:21 | Diagnostic Imaging Report ---
PROCEDURE: X-RAY CHEST, TWO VIEWS COMPARISON: 11/04/2017. INDICATIONS: SOB FINDINGS: Right-sided central venous catheter is unchanged in position. Lungs remain well-inflated with small bilateral pleural effusions and bibasilar airspace opacity, likely subsegmental atelectasis. No new consolidation. Stable cardiomediastinal contour. No pulmonary edema. No acute osseous abnormality. CONCLUSION: Stable appearance of the chest relative to 11/04/2017 with small bilateral pleural effusions and probable subsegmental atelectasis of the lung bases. Dictated by: Adrian Fry M.D. on 11/07/2017 at 10:29 Electronically approved by: Adrian Fry M.D. on 11/07/2017 at 10:29
[2017-11-07] MEDS ORDERED: IOPAMIDOL 370 MG/ML 200 ML INFUS..BTL INJ ONE (10:37)
[2017-11-07] MEDS ORDERED: SODIUM CHLORIDE 0.9% 50ML 50 ML ONE (10:37)
[2017-11-07] MEDS ORDERED: POTASSIUM CHLORIDE 20MEQ/100ML 100 ML IV ONE (12:15)
[2017-11-07] MEDS ORDERED: FUROSEMIDE INJ 10 MG/ML 4 ML VIAL IV ONE (12:15)
--- NOTE | 2017-11-07 12:26 | Diagnostic Imaging Report ---
PROCEDURE:SHOULDER COMPLETE BILATERAL INDICATION: Bilateral shoulder pain COMPARISON:None. FINDINGS: Right shoulder: No acute, displaced fracture or dislocation. Acromioclavicular and glenohumeral joint spaces are well-maintained. Soft tissues unremarkable. Left shoulder: No acute, displaced fracture or dislocation. Acromioclavicular and glenohumeral joint spaces are well-maintained. Soft tissues are unremarkable. Right internal jugular central venous catheter is partially visualized. Lung apices are well aerated. CONCLUSION: No acute osseous abnormalities. Dictated by: Adrian Fry M.D. on 11/07/2017 at 12:34 Electronically approved by: Adrian Fry M.D. on 11/07/2017 at 12:34
[2017-11-07] MEDS: ENOXAPARIN SOD INJ 40 MG/0.4 ML SYR SC SCH (17:52)
[2017-11-07] MEDS: NAPROXEN 250 MG TAB PO SCH (17:52)
[2017-11-08] VITALS (7 sets, daily range): BP systolic 126–156; BP diastolic 61–78
[2017-11-08] MEDS: ONDANSETRON HCL INJ 2 MG/ML VIAL IV PRN ×2 (00:10→04:31)
[2017-11-08] MEDS: MORPHINE SULFATE 2 MG/ML SYR IV PRN ×3 (00:10→08:45)
[2017-11-08] MEDS: GUAIFENESIN 600 MG TAB PO SCH ×5 (00:12→23:49)
[2017-11-08] MEDS: METRONIDAZOLE 500MG/NS 100ML 100 ML IV SCH ×5 (00:23→23:49)
[2017-11-08] MEDS: VANCOMYCIN 1GM/NS 250 ML 250 ML IV SCH (04:32)
[2017-11-08] MEDS: CEFEPIME HCL 1 GM VIAL IV SCH (06:19)
[2017-11-08 07:41] LABS: ANION GAP 9.8 mmol/L (8-16); BLOOD UREA NITROGEN 11 mg/dL (7-26); BUN/CREATININE RATIO 18 (6-25); CALCIUM 7.9 mg/dL (8.4-10.2); CARBON DIOXIDE 28 mmol/L (22-29); CHLORIDE 108 mmol/L (98-107); CREATININE, SERUM 0.62 mg/dL (0.57-1.11); EST GLOMERULAR FILTRATION RATE > 60 ML/MIN (60-); GLUCOSE 116 mg/dL (74-118); MAGNESIUM 1.6 MG/DL (1.3-2.1); POTASSIUM 3.8 mmol/L (3.5-5.1); SODIUM 142 mmol/L (136-145)
[2017-11-08] MEDS: PANTOPRAZOLE SOD 40 MG TABEC PO SCH (08:45)
[2017-11-08] MEDS: METOCLOPRAMIDE HCL 10 MG/2ML VIAL IV SCH ×4 (08:45→21:07)
[2017-11-08] MEDS: FERROUS SULFATE 325 MG TAB PO SCH ×2 (08:45→17:31)
[2017-11-08] MEDS: MULTIVITAMINS/MINERALS TAB PO SCH (08:45)
[2017-11-08] MEDS: FAMOTIDINE 20 MG/2 ML VIAL IV SCH ×2 (08:45→17:31)
[2017-11-08] MEDS: ASCORBIC ACID 500 MG TAB PO SCH ×2 (08:45→17:31)
[2017-11-08] MEDS: CALCIUM CARBONATE 500 MG CHEWABLE TABS PO SCH ×2 (08:45→17:31)
[2017-11-08] MEDS: NAPROXEN 250 MG TAB PO SCH ×2 (08:45→17:31)
[2017-11-08] MEDS ORDERED: CALCIUM GLUCONATE 10% INJ 9.3 MEQ in SODIUM CHLORIDE 0.9% 100 ML 100 ML IV ONE (10:15)
[2017-11-08 10:31] LABS: BASOPHILS # (AUTO) 0.1 (0.0-0.1); BASOPHILS % 0.5 % (0.0-1.0); EOSINOPHILS # (AUTO) 0.2 (0.0-0.4); EOSINOPHILS % 1.1 % (0.0-6.0); HEMATOCRIT 33.2 % (34.2-44.1); HEMOGLOBIN 11.4 g/dL (12.0-16.0); LYMPHOCYTES # (AUTO) 1.2 (1.0-3.2); LYMPHOCYTES % 7.4 % (18.0-39.1); MEAN CORPUSCULAR HEMOGLOBIN 30.4 pg (28-32); MEAN CORPUSCULAR HGB CONC 34.3 g/dL (31-35); MEAN CORPUSCULAR VOLUME 88.5 fL (81-99); MONOCYTES # (AUTO) 1.4 (0.2-0.8); MONOCYTES % 8.6 % (4.4-11.3); NEUTROPHILS # (AUTO) 12.9 (2.1-6.9); NEUTROPHILS % 79.9 % (38.7-80.0); PLATELET COUNT 470 x10e3/uL (140-360); RED BLOOD COUNT 3.75 x10e6/uL (3.6-5.1); RED CELL DISTRIBUTION WIDTH 14.1 % (11.7-14.4)
[2017-11-08 10:54] LABS: LYMPHOCYTES % (MANUAL) 6 % (19-48); MONOCYTES % (MANUAL) 3 % (3.4-9.0); NEUTROPHILS % (MANUAL) 90 % (40-74); NUCLEATED RED BLOOD CELLS 1
[2017-11-08 10:55] LABS: ANISOCYTOSIS SLIGHT
[2017-11-08 10:56] LABS: PLATELET ESTIMATE ADEQUATE; PLATELET MORPHOLOGY COMMENT FEW GIANT
[2017-11-08] MEDS ORDERED: VANCOMYCIN IV SCH (11:30)
[2017-11-08] MEDS ORDERED: [UNRECOGNIZED DRUG - OTHER] IV SCH (11:30)
[2017-11-08] MEDS: BACLOFEN 10 MG TAB PO PRN ×2 (12:38→20:00)
[2017-11-08] MEDS ORDERED: MEROPENEM 500MG 500 MG in SODIUM CHLORIDE 0.9% 50ML 50 ML IV SCH (14:00)
[2017-11-08] MEDS: MEROPENEM 500 MG VIAL IV SCH ×2 (14:56→21:07)
[2017-11-08] MEDS: TRAMADOL HCL 50 MG TAB PO PRN ×2 (17:28→23:49)
[2017-11-08] MEDS: ENOXAPARIN SOD INJ 40 MG/0.4 ML SYR SC SCH (17:31)
[2017-11-08] MEDS: VANCOMYCIN HCL 1.5 GM in SODIUM CHLORIDE 0.9% 250ML 300 ML IV SCH (18:43)
[2017-11-08] MEDS: ACETAMINOPHEN 325 MG TAB PO PRN ×2 (19:35→20:00)
[2017-11-08] MEDS ORDERED: HYDROCODONE/APAP 10MG-325MG TAB PO ONE (21:00)
[2017-11-09] VITALS (7 sets, daily range): BP systolic 121–143; BP diastolic 64–77
[2017-11-09] MEDS: ACETAMINOPHEN 325 MG TAB PO PRN (04:15)
[2017-11-09] MEDS: VANCOMYCIN HCL 1.5 GM in SODIUM CHLORIDE 0.9% 250ML 300 ML IV SCH ×2 (04:15→18:10)
[2017-11-09] MEDS: BACLOFEN 10 MG TAB PO PRN ×2 (04:15→15:18)
[2017-11-09] MEDS: MEROPENEM 500 MG VIAL IV SCH ×3 (06:20→21:45)
[2017-11-09] MEDS: GUAIFENESIN 600 MG TAB PO SCH ×3 (06:20→17:26)
[2017-11-09] MEDS: TRAMADOL HCL 50 MG TAB PO PRN (06:20)
[2017-11-09] MEDS: METRONIDAZOLE 500MG/NS 100ML 100 ML IV SCH ×2 (06:52→12:14)
[2017-11-09 07:18] LABS: BASOPHILS # (AUTO) 0.1 (0.0-0.1); BASOPHILS % 0.5 % (0.0-1.0); EOSINOPHILS # (AUTO) 0.2 (0.0-0.4); EOSINOPHILS % 1.3 % (0.0-6.0); HEMATOCRIT 34.3 % (34.2-44.1); HEMOGLOBIN 11.6 g/dL (12.0-16.0); LYMPHOCYTES # (AUTO) 1.1 (1.0-3.2); LYMPHOCYTES % 6.5 % (18.0-39.1); MEAN CORPUSCULAR HGB CONC 33.8 g/dL (31-35); MEAN CORPUSCULAR VOLUME 88.6 fL (81-99); MONOCYTES # (AUTO) 1.2 (0.2-0.8); MONOCYTES % 7.2 % (4.4-11.3); NEUTROPHILS # (AUTO) 13.4 (2.1-6.9); NEUTROPHILS % 80.5 % (38.7-80.0); PLATELET COUNT 588 x10e3/uL (140-360); RED BLOOD COUNT 3.87 x10e6/uL (3.6-5.1); RED CELL DISTRIBUTION WIDTH 14.1 % (11.7-14.4)
[2017-11-09 07:49] LABS: ANION GAP 10.3 mmol/L (8-16); BLOOD UREA NITROGEN 14 mg/dL (7-26); BUN/CREATININE RATIO 21 (6-25); CALCIUM 8.2 mg/dL (8.4-10.2); CARBON DIOXIDE 25 mmol/L (22-29); CHLORIDE 112 mmol/L (98-107); CREATININE, SERUM 0.68 mg/dL (0.57-1.11); EST GLOMERULAR FILTRATION RATE > 60 ML/MIN (60-); GLUCOSE 112 mg/dL (74-118); POTASSIUM 4.3 mmol/L (3.5-5.1); SODIUM 143 mmol/L (136-145)
[2017-11-09] MEDS: PANTOPRAZOLE SOD 40 MG TABEC PO SCH (08:28)
[2017-11-09] MEDS: METOCLOPRAMIDE HCL 10 MG/2ML VIAL IV SCH ×4 (08:28→21:45)
[2017-11-09] MEDS: FERROUS SULFATE 325 MG TAB PO SCH ×2 (08:43→17:26)
[2017-11-09] MEDS: NAPROXEN 250 MG TAB PO SCH ×2 (08:43→17:26)
[2017-11-09] MEDS: FAMOTIDINE 20 MG/2 ML VIAL IV SCH ×2 (08:43→17:26)
[2017-11-09] MEDS: ASCORBIC ACID 500 MG TAB PO SCH ×2 (08:43→17:26)
[2017-11-09] MEDS: CALCIUM CARBONATE 500 MG CHEWABLE TABS PO SCH ×2 (08:43→17:26)
[2017-11-09] MEDS: MULTIVITAMINS/MINERALS TAB PO SCH (08:43)
[2017-11-09] MEDS: HYDROCODONE/APAP 5MG-325MG TAB PO PRN ×2 (12:14→21:45)
[2017-11-09 12:15] LABS: EOSINOPHILS % (MANUAL) 2 % (0-7); LYMPHOCYTES % (MANUAL) 9 % (19-48); MONOCYTES % (MANUAL) 4 % (3.4-9.0); NEUTROPHILS % (MANUAL) 84 % (40-74); PLATELET ESTIMATE ADEQUATE; RBC MORPHOLOGY COMMENT NORMAL
[2017-11-09 12:16] LABS: PLATELET MORPHOLOGY COMMENT NORMAL
[2017-11-09] MEDS: ENOXAPARIN SOD INJ 40 MG/0.4 ML SYR SC SCH (17:26)
[2017-11-10] VITALS (7 sets, daily range): BP systolic 121–140; BP diastolic 59–72
[2017-11-10] MEDS: GUAIFENESIN 600 MG TAB PO SCH ×4 (00:20→17:07)
[2017-11-10] MEDS: ONDANSETRON HCL INJ 2 MG/ML VIAL IV PRN (04:27)
[2017-11-10] MEDS: HYDROCODONE/APAP 5MG-325MG TAB PO PRN ×3 (04:27→19:19)
[2017-11-10 04:41] LABS: BASOPHILS # (AUTO) 0.1 (0.0-0.1); BASOPHILS % 0.6 % (0.0-1.0); EOSINOPHILS # (AUTO) 0.3 (0.0-0.4); EOSINOPHILS % 1.4 % (0.0-6.0); HEMATOCRIT 34.4 % (34.2-44.1); HEMOGLOBIN 11.8 g/dL (12.0-16.0); LYMPHOCYTES # (AUTO) 1.4 (1.0-3.2); LYMPHOCYTES % 8.3 % (18.0-39.1); MEAN CORPUSCULAR HEMOGLOBIN 30.2 pg (28-32); MEAN CORPUSCULAR HGB CONC 34.3 g/dL (31-35); MONOCYTES # (AUTO) 1.3 (0.2-0.8); MONOCYTES % 7.3 % (4.4-11.3); NEUTROPHILS # (AUTO) 13.9 (2.1-6.9); NEUTROPHILS % 80.5 % (38.7-80.0); PLATELET COUNT 771 x10e3/uL (140-360); RED BLOOD COUNT 3.91 x10e6/uL (3.6-5.1)
[2017-11-10] MEDS: VANCOMYCIN HCL 1.5 GM in SODIUM CHLORIDE 0.9% 250ML 300 ML IV SCH ×2 (04:59→17:07)
[2017-11-10] MEDS: MEROPENEM 500 MG VIAL IV SCH ×3 (05:47→21:20)
[2017-11-10] MEDS: METOCLOPRAMIDE HCL 10 MG/2ML VIAL IV SCH ×4 (08:30→21:20)
[2017-11-10] MEDS: NAPROXEN 250 MG TAB PO SCH ×2 (09:14→17:07)
[2017-11-10] MEDS: FERROUS SULFATE 325 MG TAB PO SCH ×2 (09:14→17:07)
[2017-11-10] MEDS: FAMOTIDINE 20 MG/2 ML VIAL IV SCH ×2 (09:14→17:07)
[2017-11-10] MEDS: ASCORBIC ACID 500 MG TAB PO SCH ×2 (09:14→17:07)
[2017-11-10] MEDS: PANTOPRAZOLE SOD 40 MG TABEC PO SCH (09:14)
[2017-11-10] MEDS: MULTIVITAMINS/MINERALS TAB PO SCH (09:14)
[2017-11-10] MEDS: CALCIUM CARBONATE 500 MG CHEWABLE TABS PO SCH ×2 (09:14→17:07)
[2017-11-10] MEDS: BACLOFEN 10 MG TAB PO PRN ×2 (09:18→21:20)
[2017-11-10 09:34] LABS: ANION GAP 13.3 mmol/L (8-16); BLOOD UREA NITROGEN 13 mg/dL (7-26); BUN/CREATININE RATIO 19 (6-25); CALCIUM 8.4 mg/dL (8.4-10.2); CARBON DIOXIDE 23 mmol/L (22-29); CHLORIDE 108 mmol/L (98-107); CREATININE, SERUM 0.69 mg/dL (0.57-1.11); EST GLOMERULAR FILTRATION RATE > 60 ML/MIN (60-); GLUCOSE 127 mg/dL (74-118); POTASSIUM 4.3 mmol/L (3.5-5.1); SODIUM 140 mmol/L (136-145)
[2017-11-11] VITALS (8 sets, daily range): BP systolic 111–139; BP diastolic 58–69
[2017-11-11] MEDS: GUAIFENESIN 600 MG TAB PO SCH ×5 (00:04→23:38)
[2017-11-11] MEDS: HYDROCODONE/APAP 5MG-325MG TAB PO PRN ×4 (02:02→23:46)
[2017-11-11] MEDS: VANCOMYCIN HCL 1.5 GM in SODIUM CHLORIDE 0.9% 250ML 300 ML IV SCH ×2 (03:30→17:15)
[2017-11-11] MEDS: MEROPENEM 500 MG VIAL IV SCH ×3 (06:02→21:37)
[2017-11-11 06:44] LABS: BASOPHILS # (AUTO) 0.1 (0.0-0.1); BASOPHILS % 0.7 % (0.0-1.0); EOSINOPHILS # (AUTO) 0.3 (0.0-0.4); EOSINOPHILS % 1.9 % (0.0-6.0); HEMATOCRIT 34.8 % (34.2-44.1); HEMOGLOBIN 11.7 g/dL (12.0-16.0); LYMPHOCYTES # (AUTO) 1.7 (1.0-3.2); LYMPHOCYTES % 12.6 % (18.0-39.1); MEAN CORPUSCULAR HEMOGLOBIN 29.9 pg (28-32); MEAN CORPUSCULAR HGB CONC 33.6 g/dL (31-35); MONOCYTES # (AUTO) 1.1 (0.2-0.8); MONOCYTES % 8.4 % (4.4-11.3); NEUTROPHILS # (AUTO) 10.1 (2.1-6.9); NEUTROPHILS % 74.5 % (38.7-80.0); PLATELET COUNT 865 x10e3/uL (140-360); RED BLOOD COUNT 3.91 x10e6/uL (3.6-5.1); RED CELL DISTRIBUTION WIDTH 14.1 % (11.7-14.4)
[2017-11-11 06:58] LABS: ANION GAP 12.2 mmol/L (8-16); BLOOD UREA NITROGEN 11 mg/dL (7-26); BUN/CREATININE RATIO 15 (6-25); CALCIUM 8.7 mg/dL (8.4-10.2); CARBON DIOXIDE 25 mmol/L (22-29); CHLORIDE 108 mmol/L (98-107); CREATININE, SERUM 0.72 mg/dL (0.57-1.11); EST GLOMERULAR FILTRATION RATE > 60 ML/MIN (60-); GLUCOSE 127 mg/dL (74-118); POTASSIUM 4.2 mmol/L (3.5-5.1); SODIUM 141 mmol/L (136-145)
--- NOTE | 2017-11-11 07:32 | Progress Note ---
DATE: PCP: Unknown CONSULTANTS: Dr. Frankie Gonzalez, ID and Dr. Adrian Baird, surgery, Dr. Kurt Santos. CHIEF COMPLAINT: Acute abdominal pain and perforated viscus. DIET: Soft diet. ALLERGIES: CODEINE. SUBJECTIVE: Patient requests increased Baclofen to at least 2-3 times per day as that helps relieve a lot of her muscular and joint pain. OBJECTIVE VITALS: Temperature 97.6, pulse 78, blood pressure 136/67, respirations 18, and satting 96%, height 5 feet 7 inches, weight 136. BMI 21.29. GENERAL: Patient is awake, alert and oriented times 3. Patient is sitting in recliner. LUNGS: Clear to auscultation bilaterally. Normal respiratory effort. HEENT: Extraocular muscles are intact. Anicteric sclerae. NECK: Supple. Trachea midline. CARDIOVASCULAR: Regular rate and rhythm. No murmurs appreciated. ABDOMEN: Bowel sounds present. It is nondistended. It is tender to touch. Patient has a colostomy with a wound VAC as well. EXTREMITIES: No calf tenderness. No edema. NEUROLOGICAL: Nonfocal. MEDICATIONS: Please see MAR. LABS: Sodium 140, potassium 4.3, chloride 108, CO2 23, BUN 13, creatinine 0.69, glucose 127. White count elevated up to 17.3 from 16.7 yesterday, hemoglobin 11.8, hematocrit 34.4, and platelets 771,000. DIAGNOSES 1. Perforated colon: Status post surgical repair and colostomy. Patient should continue on intravenous antibiotics of Merrem, vancomycin, Flagyl. Infectious disease is following. 2. Anemia: Stable. Hemoglobin 11.8 today. Will continue to monitor that. 3. Hypokalemia: Last calcium was 8.2, which is stable at this time. Continue on Tums. 4. Leukocytosis: Infectious disease is on the case. Will defer to infectious disease to monitor white count. 5. Of note, patient discussed discharge planning for home health versus SNF. Patient requested if she can go to SNF to continue monitoring her wound care, as well as her antibiotics and pain medications. I did do a referral for SNF, and assured the patient will follow up after that. Baclofen has been changed from daily to b.i.d., and hydrocodone has been changed from every 4 to every 6 hours. DICTATED BY BRE GARRISON NP Job#: [id number] [place]
[2017-11-11] MEDS: PANTOPRAZOLE SOD 40 MG TABEC PO SCH (08:24)
[2017-11-11] MEDS: FAMOTIDINE 20 MG/2 ML VIAL IV SCH ×2 (08:24→17:15)
[2017-11-11] MEDS: ASCORBIC ACID 500 MG TAB PO SCH ×2 (08:24→17:15)
[2017-11-11] MEDS: CALCIUM CARBONATE 500 MG CHEWABLE TABS PO SCH ×2 (08:24→17:15)
[2017-11-11] MEDS: NAPROXEN 250 MG TAB PO SCH ×2 (08:24→17:15)
[2017-11-11] MEDS: METOCLOPRAMIDE HCL 10 MG/2ML VIAL IV SCH ×4 (08:24→21:37)
[2017-11-11] MEDS: FERROUS SULFATE 325 MG TAB PO SCH ×2 (08:24→17:15)
[2017-11-11] MEDS: MULTIVITAMINS/MINERALS TAB PO SCH (08:24)
[2017-11-11] MEDS: BACLOFEN 10 MG TAB PO PRN ×2 (09:53→21:37)
[2017-11-11 10:22] LABS: FERRITIN 249.7 ng/mL (4.63-204.00)
--- NOTE | 2017-11-11 15:41 | Consultation ---
DATE OF CONSULTATION: November 11, 2017 ATTENDING DOCTOR: Dr. Carranza. Thank you Dr. Carranza for this consultation. This is a 52-year-old female with no significant past medical history, very healthy. Does exercise almost every day, include weight lifting and cardio. She was presented to hospital with worsening lower abdominal pain. Her workup was suggestive for perforated viscus, followed with surgeon, required surgical intervention to repair. She had possibly diverticular disease. She was admitted with platelet count was 400 and during hospital stay, they went up to the 800. She denies any prior history of blood disorder. No other event noted. No history of any blood clot. Her hemoglobin and white cell count was stable. PAST MEDICAL HISTORY: None. PAST SURGICAL HISTORY: Hernia repair, vasectomy and tonsillectomy. ALLERGIES: CODEINE. MEDICATIONS: List reviewed. SOCIAL HISTORY: Patient is , live with her . She does not smoke or drink, but use illegal drugs. FAMILY HISTORY: Unremarkable. REVIEW OF SYSTEMS: A 12-point review is as per the HPI. PHYSICAL EXAMINATION GENERAL: Alert, awake, communicative. HEENT: Normocephalic and atraumatic. Sclerae pink. Conjunctivae clear. NECK: Supple. CHEST: Clear to auscultation with decreased breath sounds in the bases. CARDIOVASCULAR: Regular rate and rhythm. ABDOMEN: Soft. EXTREMITIES: No edema. LABS AND IMAGING: Reviewed. ASSESSMENT AND PLAN: Patient with history of multiple medical conditions. I am currently following for; 1. Thrombocytosis. Patient has new onset of thrombocytosis. Her platelet count was high and got worse during hospital stay. Likely etiology reactive thrombocytosis because of recent surgery, history of colon perforation, pain and bleeding. Will check iron for routine level. Other possible differential includes essential thrombocytosis. I will check JAK2 mutation for further evaluation. I have given recommendation of close observation. 2. Colon perforation, status post surgical intervention, clinically doing better. Recommendation, continue current care. Will continue remaining care. Will follow patient. Job#: [id number] ELIDA
[2017-11-12] VITALS (7 sets, daily range): BP systolic 114–126; BP diastolic 56–63
[2017-11-12 04:48] LABS: BASOPHILS # (AUTO) 0.1 (0.0-0.1); EOSINOPHILS # (AUTO) 0.4 (0.0-0.4); EOSINOPHILS % 2.8 % (0.0-6.0); HEMATOCRIT 33.5 % (34.2-44.1); HEMOGLOBIN 11.4 g/dL (12.0-16.0); LYMPHOCYTES # (AUTO) 1.8 (1.0-3.2); LYMPHOCYTES % 13.2 % (18.0-39.1); MEAN CORPUSCULAR HEMOGLOBIN 30.2 pg (28-32); MEAN CORPUSCULAR VOLUME 88.9 fL (81-99); MONOCYTES # (AUTO) 1.2 (0.2-0.8); MONOCYTES % 8.8 % (4.4-11.3); NEUTROPHILS # (AUTO) 9.7 (2.1-6.9); NEUTROPHILS % 72.5 % (38.7-80.0); PLATELET COUNT 964 x10e3/uL (140-360); RED BLOOD COUNT 3.77 x10e6/uL (3.6-5.1); RED CELL DISTRIBUTION WIDTH 13.9 % (11.7-14.4)
[2017-11-12 05:10] LABS: ANION GAP 11.3 mmol/L (8-16); BLOOD UREA NITROGEN 17 mg/dL (7-26); BUN/CREATININE RATIO 23 (6-25); CALCIUM 8.8 mg/dL (8.4-10.2); CARBON DIOXIDE 25 mmol/L (22-29); CHLORIDE 108 mmol/L (98-107); CREATININE, SERUM 0.74 mg/dL (0.57-1.11); EST GLOMERULAR FILTRATION RATE > 60 ML/MIN (60-); GLUCOSE 117 mg/dL (74-118); POTASSIUM 4.3 mmol/L (3.5-5.1); SODIUM 140 mmol/L (136-145)
[2017-11-12] MEDS: VANCOMYCIN HCL 1.5 GM in SODIUM CHLORIDE 0.9% 250ML 300 ML IV SCH ×2 (05:11→16:24)
[2017-11-12] MEDS: MEROPENEM 500 MG VIAL IV SCH ×3 (05:18→21:18)
[2017-11-12] MEDS: GUAIFENESIN 600 MG TAB PO SCH ×4 (05:18→23:30)
[2017-11-12] MEDS: ONDANSETRON HCL INJ 2 MG/ML VIAL IV PRN (05:18)
[2017-11-12] MEDS: HYDROCODONE/APAP 5MG-325MG TAB PO PRN ×3 (06:47→22:20)
[2017-11-12] MEDS ORDERED: BACLOFEN10 MG PO (07:26)
[2017-11-12] MEDS ORDERED: REGLAN10 MG PO (07:26)
[2017-11-12] MEDS ORDERED: NAPROXEN250 MG PO (07:26)
[2017-11-12] MEDS ORDERED: CIPROFLOXACIN500 MG PO (07:26)
[2017-11-12] MEDS ORDERED: DOXYCYCLINE HY100 MG PO (07:26)
[2017-11-12] MEDS ORDERED: TYLENOL WITH C1 EACH PO (07:35)
[2017-11-12] MEDS: ASCORBIC ACID 500 MG TAB PO SCH ×2 (09:08→16:24)
[2017-11-12] MEDS: PANTOPRAZOLE SOD 40 MG TABEC PO SCH (09:08)
[2017-11-12] MEDS: NAPROXEN 250 MG TAB PO SCH ×2 (09:08→16:24)
[2017-11-12] MEDS: CALCIUM CARBONATE 500 MG CHEWABLE TABS PO SCH ×2 (09:08→16:24)
[2017-11-12] MEDS: MULTIVITAMINS/MINERALS TAB PO SCH (09:08)
[2017-11-12] MEDS: METOCLOPRAMIDE HCL 10 MG/2ML VIAL IV SCH ×4 (09:08→21:18)
[2017-11-12] MEDS: FERROUS SULFATE 325 MG TAB PO SCH ×2 (09:08→16:24)
[2017-11-12] MEDS: FAMOTIDINE 20 MG/2 ML VIAL IV SCH ×2 (09:08→16:24)
[2017-11-12] MEDS: BACLOFEN 10 MG TAB PO PRN ×2 (09:10→21:18)
[2017-11-13] VITALS: BP 116/57
--- NOTE | 2017-11-13 01:56 | Progress Note ---
DATE: November 12, 2017 Patient was seen and examined today. She appeared comfortable. Clinically doing better. No worsening events noted. PHYSICAL EXAMINATION GENERAL: Alert, awake and communicative. HEENT: Normocephalic and atraumatic. Sclerae pink. Conjunctivae clear. NECK: Supple. CHEST: Decreased at the bases. ABDOMEN: Soft. EXTREMITIES: No edema. Labs and imaging reviewed. ASSESSMENT AND PLAN: Patient with a history of multiple medical conditions admitted with acute abdominal pain. Workup showed diverticular perforation. Patient is status post surgery. Patient also had thrombocytosis, likely etiology reactive thrombocytosis. Workup is pending. Recommendation is outpatient followup for further management. Will monitor the patient closely. Job#: [id number] TR[place]
[2017-11-13 04:00] VITALS: BP 111/56
[2017-11-13] MEDS: VANCOMYCIN HCL 1.5 GM in SODIUM CHLORIDE 0.9% 250ML 300 ML IV SCH (04:30)
[2017-11-13] MEDS: HYDROCODONE/APAP 5MG-325MG TAB PO PRN (04:43)
[2017-11-13] MEDS: MEROPENEM 500 MG VIAL IV SCH (05:58)
[2017-11-13] MEDS: GUAIFENESIN 600 MG TAB PO SCH ×2 (05:58→13:18)
[2017-11-13 08:00] VITALS: BP 101/58
[2017-11-13] MEDS: FAMOTIDINE 20 MG/2 ML VIAL IV SCH (08:41)
[2017-11-13] MEDS: METOCLOPRAMIDE HCL 10 MG/2ML VIAL IV SCH ×2 (08:41→12:45)
[2017-11-13] MEDS: FERROUS SULFATE 325 MG TAB PO SCH (08:41)
[2017-11-13] MEDS: PANTOPRAZOLE SOD 40 MG TABEC PO SCH (08:41)
[2017-11-13] MEDS: NAPROXEN 250 MG TAB PO SCH (08:41)
[2017-11-13] MEDS: ASCORBIC ACID 500 MG TAB PO SCH (08:42)
[2017-11-13] MEDS: MULTIVITAMINS/MINERALS TAB PO SCH (08:42)
[2017-11-13] MEDS: CALCIUM CARBONATE 500 MG CHEWABLE TABS PO SCH (08:42)
[2017-11-13] MEDS: BACLOFEN 10 MG TAB PO PRN (10:46)
[2017-11-13 13:27] VITALS: BP 121/64
--- NOTE | 2017-11-13 13:43 | Discharge Summary ---
ADMITTING DIAGNOSIS: Perforated colon with peritonitis and sepsis. DISCHARGE DIAGNOSES 1. Perforated colon with peritonitis and sepsis. 2. Anemia. 3. Thrombocytosis. 4. Leukocytosis. 5. Colostomy placement. HISTORY: Patient has no medical history except a surgical history of cholecystectomy. She is very healthy and works out daily. HOSPITAL COURSE: A 52-year-old female presents with sudden onset of lower abdominal pain, severe, sharp, stabbing pain. On admission, the CT of the abdomen showed pneumoperitoneum, ascites, and ileus suggesting viscus perforation. Patient was taken to the OR that day. Exploratory lap, sigmoid colon resection with end colostomy Yas's pouch performed. Patient tolerated well and was transferred to ICU with NG tube. Patient's peritoneal fluid was found to have E. coli, Enterococcus gallinarum, and Klebsiella pneumoniae. Repeat wound culture was found to have Enterococcus gallinarum and Acinetobacter baumannii. Blood cultures were found to be negative. Urine culture negative. ID was consulted, who changed the antibiotics to Cipro 500 q.12 and doxycycline 100 q.12. Patient's thrombocytosis was likely reactive per building specialist. Patient will follow up outpatient for workup. Patient recovering well. Wound was left open at the time of surgery. Dr. Baird came a few days later to close her with Steri-Strips. Few days after that, a wound VAC was placed on the patient's abdomen. Patient's pain tolerated well with p.o. pain medicines. As she has a history of drug abuse, she does not wish to receive narcotics as much as possible. She complained of bilateral shoulder pain on numerous occasions. A shoulder x-ray was negative. Patient started on naproxen for assumed muscle ache. Patient is to follow up with infectious disease in 1 to 2 weeks and hematology in 1 to 2 weeks. She will discharge home as soon as the wound VAC is set up outpatient. Patient tolerating food with no nausea, no vomiting. Pain is minimal. She is ambulating on her own. Patient lives at home with her . They are excited to go home. Dictated by: Lena Mendoza NP JOVANNA ALVARADO MD Job#: [id number] [facility]
--- NOTE | 2017-11-13 18:05 | Progress Note ---
DATE: November 13, 2017 The patient was seen and examined today. She is very comfortable. No worsening event noted. The patient is currently . No chest pain, headache or dizziness. PHYSICAL EXAMINATION GENERAL: Alert, awake and communicative. HEENT: Normocephalic and atraumatic. Sclerae pink. Conjunctivae clear. NECK: Supple. CHEST: Clear to auscultation. CARDIOVASCULAR: Regular rate and rhythm. EXTREMITIES: No edema. Labs and imaging reviewed. ASSESSMENT AND PLAN: 1. The patient with a history of multiple medical conditions and pertinent for thrombocytosis. The patient likely has reactive thrombocytosis. JAK2 mutation is pending. Will follow the patient. 2. Diverticular rupture, status post surgery, currently improving. GI and surgery on the case. 3. Will continue monitoring and will follow the patient. Job#: [id number]
--- NOTE | 2017-11-14 00:34 | Progress Note ---
DATE: CONSULTANTS: Dr. Steve Riley, Dr. Gonzalez, Dr. Baird, Dr. Kurt Santos. CHIEF COMPLAINT: Acute abdominal pain, perforated viscus. DIET: Soft diet. SUBJECTIVE: Patient requesting to be discharged today. Patient's at bedside. OBJECTIVE VITALS: Temperature 97.1, pulse 83, blood pressure 111/56, respirations 18, satting 96%. BMI 21. GENERAL: Patient is awake, alert and oriented times 3. LUNGS: Clear to auscultation bilaterally with normal respiratory effort. HEENT: Extraocular muscles are intact. ABDOMEN: Soft. Bowel sounds present. Patient has a wound VAC in place. CARDIOVASCULAR: Regular rate and rhythm. No murmurs appreciated. EXTREMITIES: No calf tenderness. NEUROLOGICAL: Nonfocal. MEDICATIONS: Please see MAR. DIAGNOSES 1. Perforated colon: Status post surgical repair and colostomy. Awaiting wound VAC to be discharged home. Patient has been cleared by surgery. For now, will continue to be on vancomycin intravenously. 2. Anemia: Has been stable. 3. Hypokalemia which has been stable. 4. Leukocytosis which has gradually resolved: It is now down to 13.3. Patient was denied SNF. Therefore, will be discharged home pending wound VAC delivery. DICTATED BY BRE GARRISON NP Job#: [id number] [place]
== END 2017-11-13 14:55 | DRG 853 ==
LOC: ER 12:14 → OR 17:24 → ICU 20:04 → MED/SURG 11-02 14:42
PROVIDERS: ADMIT Internal Medicine; ATTEND Internal Medicine
PROC: 0DTN0ZZ Resection of Sigmoid Colon, Open Approach (ICD-10-PCS; 2017-10-30)
PROC: 0D1N0J4 Bypass Sigmoid Colon to Cutaneous with Synthetic Substitute, Open Approach (ICD-10-PCS; 2017-10-30)
PROC: 0WJP0ZZ Inspection of Gastrointestinal Tract, Open Approach (ICD-10-PCS; principal; 2017-10-30 17:40)
PROC: 02HV33Z Insertion of Infusion Device into Superior Vena Cava, Percutaneous Approach (ICD-10-PCS; 2017-10-30 17:40)
DX: A41.9 Sepsis, unspecified organism (principal); R65.21 Severe sepsis with septic shock; K57.20 Diverticulitis of large intestine with perforation and abscess without bleeding; E83.42 Hypomagnesemia; E87.1 Hypo-osmolality and hyponatremia; D47.3 Essential (hemorrhagic) thrombocythemia; Z87.891 Personal history of nicotine dependence; B96.20 Unspecified Escherichia coli [E. coli] as the cause of diseases classified elsewhere; B95.2 Enterococcus as the cause of diseases classified elsewhere; B96.1 Klebsiella pneumoniae [K. pneumoniae] as the cause of diseases classified elsewhere; E87.6 Hypokalemia; M25.512 Pain in left shoulder; M25.511 Pain in right shoulder; G89.18 Other acute postprocedural pain
CPT/HCPCS: 36415; 36556; 71010; 71020; 71260; 74177; 74470; 76937; 80048; 80053; 80202; 81001; 81220; 82150; 82728; 82948; 83540; 83690; 83735; 84466; 84702; 85007; 85025; 85027; 85610; 85730; 87040; 87071; 87075; 87086; 87186; 87205; 88307; 96361; 96366; 96367; 96372; 96376; 97606; 99284; C1751; J0461; J0610; J0692; J1100; J1650; J1885; J1940; J2001; J2185; J2250; J2270; J2405; J2765; J3370; J3480; J7030; J7050; J7120; Q9967

== ENCOUNTER → 2018-01-23 | Day surgery (SDC) | payer OTHER ==
[~2018-01-23] MED LIST: BACLOFEN10 MG PO; CIPROFLOXACIN500 MG PO; DOXYCYCLINE HY100 MG PO; LIDOCAINE HCL 2% LOCAL INJ 5 ML SDV VIAL INJ ONE; MIDAZOLAM HCL 2 MG/2 ML VIAL ONE; NAPROXEN250 MG PO; PROPOFOL IV EMULSION 10 MG/ML 50 ML VIAL ONE; REGLAN10 MG PO; TYLENOL WITH C1 EACH PO
--- OUTSIDE RECORDS SUMMARY | 2018-01-23 06:43 | XMS REPORT ---
Author Author [facility] Address Unknown Phone Unavailable Care Team Providers Care Sap Technical Developer Name Role Phone JOVANNA ALVARADO Unavailable Unavailable Problems This patient has no known problems. Allergies, Adverse Reactions, Alerts This patient has no known allergies or adverse reactions. Medications This patient has no known medications. Results Test Description Test Time Test Comments Text Results Atomic Results Result Comments SHOULDER COMPLETE BILATERAL [place] [address] Patient Name: MARY DENISE MR #: [id number] : 1965 Age/Sex: 52/F Req #: [id number] Adm Physician: JOVANNA ALVARADO MD Ordered by: NATALIIA BIGGS MD Report #: [id number] Location: MED/SURG Room/Bed: [facility] __ Procedure: [id number] DX/SHOULDER COMPLETE BILATERAL Exam Date: 11/07/17 Exam Time: 1155 REPORT STATUS: Signed PROCEDURE: SHOULDER COMPLETE BILATERAL INDICATION: Bilateral shoulder pain COMPARISON: None. FINDINGS: Right shoulder: No acute, displaced fracture or dislocation. Acromioclavicular and glenohumeral joint spaces are well-maintained. Soft tissues unremarkable. Left shoulder: No acute, displaced fracture or dislocation. Acromioclavicular and glenohumeral joint spaces are well-maintained. Soft tissues are unremarkable. Right internal jugular central venous catheter is partially visualized. Lung apices are well aerated. CONCLUSION: No acute osseous abnormalities. Dictated by: Nataliia Alvarez M.D. on 11/07/2017 at 12:34 Electronically approved by: Nataliia Alvarez M.D. on 11/07/2017 at 12:34 Dictated By: NATALIIA ALVAREZ MD 1234 Transcribed By: RUDY on 11/07/17 1234 COPY TO: NATALIIA BIGGS MD CHEST 2 VIEWS [place] [address] Patient Name: MARY DENISE MR #: [id number] : 1965 Age/Sex: 52/F Req #: [id number] Adm Physician: JOVANNA ALVARADO MD Ordered by: NATALIIA BIGGS MD Report #: [id number] Location: MED/SURG Room/Bed: [facility] _ Procedure: [id number] DX/CHEST 2 VIEWS Exam Date: 11/07/17 Exam Time: 0830 REPORT STATUS: Signed PROCEDURE: X-RAY CHEST, TWO VIEWS COMPARISON: 11/04/2017. INDICATIONS: SOB FINDINGS: Right-sided central venous catheter is unchanged in position. Lungs remain well-inflated with small bilateral pleural effusions and bibasilar airspace opacity, likely subsegmental atelectasis. No new consolidation. Stable cardiomediastinal contour. No pulmonary edema. No acute osseous abnormality. CONCLUSION: Stable appearance of the chest relative to with small bilateral pleural effusions and probable subsegmental atelectasis of the lung bases. Dictated by: Nataliia Alvarez M.D. on 2017 at 10:29 Electronically approved by: Nataliia Alvarez M.D. on 11/07/2017 at 10:29 Dictated By: NATALIIA ALVAREZ MD 1029 Transcribed By: RUDY on 11/07/17 1029 COPY TO: NATALIIA BIGGS MD CT CHEST W [place] [address] Patient Name: MARY DENISE MR #: [id number] : 1965 Age/Sex: 52/F Req #: [id number] Adm Physician: JOVANNA ALVARADO MD Ordered by: NATALIIA BIGGS MD Report #: [id number] Location: MED/SURG Room/Bed: [facility] _ Procedure: [id number] CT/CT CHEST W Exam Date: 11/06/17 Exam Time: 1400 REPORT STATUS: Signed PROCEDURE: CT scan of the chest WITH intravenous contrast, using PE protocol. TECHNIQUE: The chest was scanned utilizing a multidetector helical scanner from the lung apex through the level of the adrenal glands after the IV administration of 100 cc of Isovue 370. Coronal and sagittal multiplanar reformations were obtained. Pulmonary angiogram protocol was performed. Total DLP: 438.95 mGy-cm COMPARISON: None. INDICATIONS: SOB FINDINGS : Lines/tubes: None. Lungs and Airways: No central pulmonary emboli. Bilateral lower lobe subsegmental compressive atelectasis. Pleura: Small bilateral pleural effusions. Heart and mediastinum: The thyroid gland is normal. No significant mediastinal, hilar or axillary lymphadenopathy is seen. The heart and pericardium are within normal limits. Main pulmonary artery measures 2.5 cm. Ascending aorta measures 2.9 cm. Soft tissues: Normal. Abdomen: Limited contrast-enhanced views of the upper abdomen show no abnormality within the visualized liver, spleen, pancreas, or kidneys. The adrenal glands are normal. Bones: The visualized bony thorax is within normal limits. IMPRESSION: 1. Small bilateral pleural effusions with associated subsegmental compressive atelectasis of both lower lobes. 2. No pulmonary emboli. Dictated by: Magi France M.D. on 11/06/2017 at 14:54 Electronically approved by: Magi France M.D. on 11/06/2017 at 14:54 Dictated By: MAGI FRANCE MD 53 Transcribed By: RUDY on 11/06/171453 COPY TO: NATALIIA BIGGS MD CHEST 2 VIEWS [place] [address] Patient Name: MARY DENISE MR #: [id number] : 1965 Age/Sex: 52/F Req #: [id number] Adm Physician: JOVANNA ALVARADO MD Ordered by: NATALIIA BIGGS MD Report #: [id number] Location: MED/SURG Room/Bed: [facility] _ Procedure: [id number] DX/CHEST 2 VIEWS Exam Date: 11/04/17 Exam Time: 1407 REPORT STATUS: Signed Two view chest x-ray INDICATION: Right shoulder pain COMPARISON: 10/31/2017. FINDINGS: The cardiomediastinal silhouette is mildly enlarged and stable. A right subclavian catheter terminates in the right atrium. There is no evidence of hilar lymphadenopathy. The pulmonary vascular markings are normal. Bilateral costophrenic angle blunting has progressed. There is bibasilar atelectasis. Evaluation of the osseous structures demonstrates no focal abnormality. IMPRESSION: Bibasilar pleural effusions and atelectasis. No vascular congestion. Signed by: Dr. Genevieve Lopez MD on 11/04/2017 2:38 PM Dictated By: GENEVIEVE LOPEZ MD Transcribed By: JULIO on 11/21 COPY TO: NATALIIA BIGGS MD CHEST XRAY LINE PLACEMENT [place] [address] Patient Name: MARY DENISE MR #: [id number] : 1965 Age/Sex: 52/F Req #: [id number] Adm Physician: JOVANNA ALVARADO MD Ordered by: TRUNG CASEY MD Report #: [id number] Location: ICU Room/Bed: ICU [facility] ___ Procedure: [id number] DX/CHEST XRAY LINE PLACEMENT Exam Date: 10/31/17 Exam Time: 1240 REPORT STATUS: Signed PROCEDURE: A single AP view of the chest. COMPARISON: None. INDICATIONS: CENTRAL LINE PLACEMENT FINDINGS: Lines/tubes: Right internal jugular temporary central venous catheter with tip projecting over the expected region of the right atrium. Enteric feeding catheter with tip projecting over the expected region of the mid gastric body. Lungs: Bibasilar atelectasis. No parenchymal mass. Pleura: Small bilateral pleural effusions. No pneumothorax. Heart and mediastinum: The heart and the mediastinum are unremarkable. Bones: No acute bony abnormality. IMPRESSION: Small bilateral pleural effusions. Dictated by: Trung Casey M.D. on 10/31/2017 at 13:46 Electronically approved by: Trung Casey M.D. on 10/31/2017 at 13:46 Dictated By: TRUNG CASEY MD 1346 Transcribed By: RUDY on 10/31/17 1346 COPY TO: TRUNG CASEY MD IR CONSULT [place] [address] Patient Name: MARY DENISE MR #: [id number] : 1965 Age/Sex: 52/F Req #: [id number] Adm Physician: JOVANNA ALVARADO MD Ordered by: RITU VALLEJO MD Report #: [id number] Location: ICU Room/Bed: ICU [facility] Procedure: [id number] DX/IR CONSULT Exam Date: Exam Time: REPORT STATUS: Signed PROCEDURE: NON-TUNNELLED CVC CATH PLACMNT COMPARISON: None. INDICATIONS: Central Line Placement COMPLICATIONS: None. MEDICATIONS: None. BLOOD LOSS: None. PROCEDURE : The procedure was performed at the bedside in the intensive care unit. Ultrasonographic evaluation demonstrated a patent compressible right internal jugular vein. A safe approach was determined. The right neck was prepped and draped in the usual sterile fashion. 1% lidocaine was infused into the subcutaneous tissues for local anesthesia. Utilizing ultrasound guidance, a 21 gauge needle was advanced into the right internal jugular vein. A 0.018 inch wire was advanced centrally. An access sheath was placed over the wire to secure the vascular access. The wire was upsized to a 0.035 wire. A single dilation was performed over the wire. A triple lumen temporary central venous catheter was advanced over the wire. The wire was removed. The catheter lumens demonstrated proper function with aspiration and flush of sterile saline. The catheter lumens were flushed with sterile saline. The catheter was secured to the skin with 3-0 Ethilon suture. A sterile dressing was applied. There were no immediate complications. The patient tolerated the procedure well. The patient remained in the intensive care unit in stable but critical condition. CONCLUSION: Successful placement of a right internal jugular temporary central venous catheter utilizing ultrasound guidance. Dictated by: Trung Casey M.D. on 10/31/2017 at 14:16 Electronically approved by: Trung Casey M.D. on 10/31/2017 at 14:16 Dictated By: TRUNG CASEY MD 15 Transcribed By: RUDY on 10/31/171415 COPY TO: RITU VALLEJO MD US GUIDANCE FOR VASCULAR ACCES [place] [address] Patient Name: MARY DENISE MR #: [id number] : 1965 Age/Sex: 52/F Req #: [id number] [facility] Physician: JOVANNA ALVARADO MD Ordered by: RITU VALLEJO MD Report #: [id number] Location: ICU Room/Bed: [place] [address] Procedure: [id number] US/US GUIDANCE FOR VASCULAR ACCES Exam Date: Exam Time: REPORT STATUS: Signed PROCEDURE: ULTRASOUND GUIDANCE FOR VASCULAR ACCESS COMPARISON : None. INDICATIONS: Central Line Placement FINDINGS: Right internal jugular vein is noted to be patent. Ultrasound guidance was utilized for access for central venous catheter placement. CONCLUSION: Patent right internal jugular vein. Successful ultrasound guidance for central venous catheter placement. Dictated by: Trung Casey M.D. on at 14:10 Electronically approved by: Trung Casey M.D. on 2016 at 14:10 Dictated By: TRUNG CASEY MD 09 Transcribed By: RUDY on 10/31/17 141 COPY TO: RITU VALLEJO MD NON-TUNNELLED CVC CATH PLACMNT [facility] [address] [place] [address] Patient Name: MARY DENISE MR #: [id number] : 1965 Age/Sex: 52/F Req #: [id number] Adm Physician: JOVANNA ALVARADO MD Ordered by: RITU VALLEJO MD Report #: [id number] Location: ICU Room/Bed: ICU [facility] Procedure: [id number] IR/NON-TUNNELLED CVC CATH PLACMNT Exam Date: 10/31/17 Exam Time: 1240 REPORT STATUS: Signed PROCEDURE: NON-TUNNELLED CVC CATH PLACMNT COMPARISON: None. INDICATIONS: Central Line Placement COMPLICATIONS: None. MEDICATIONS : None. BLOOD LOSS: None. PROCEDURE: The procedure was performed at the bedside in the intensive care unit. Ultrasonographic evaluation demonstrated a patent compressible right internal jugular vein. A safe approach was determined. The right neck was prepped and draped in the usual sterile fashion. 1% lidocaine was infused into the subcutaneous tissues for local anesthesia. Utilizing ultrasound guidance, a 21 gauge needle was advanced into the right internal jugular vein. A 0.018 inch wire was advanced centrally. An access sheath was placed over the wire to secure the vascular access. The wire was upsized to a 0.035 wire. A single dilation was performed over the wire. A triple lumen temporary central venous catheter was advanced over the wire. The wire was removed. The catheter lumens demonstrated proper function with aspiration and flush of sterile saline. The catheter lumens were flushed with sterile saline. The catheter was secured to the skin with 3-0 Ethilon suture. A sterile dressing was applied. There were no immediate complications. The patient tolerated the procedure well. The patient remained in the intensive care unit in stable but critical condition. CONCLUSION: Successful placement of a right internal jugular temporary central venous catheter utilizing ultrasound guidance. Dictated by: Trung Casey M.D. on 10/31/2017 at 14: 16 Electronically approved by: Trung Casey M.D. on 10/31/2017 at 14:16 Dictated By: TRUNG CASEY MD 15 Transcribed By: RUDY on 10/31/17 1416 COPY TO: RITU VALLEJO MD CT ABDOMEN/PELVIS W [place] [address] Patient Name: MARY DENISE MR #: [id number] : 1965 Age/Sex: 52/F Req # : [id number] Adm Physician: Ordered by: HOMER ZHU DOOR INSTALLER Report #: [id number] Location: ER Room/Bed: Procedure: [id number] CT/CT ABDOMEN/PELVIS W Exam Date: 10/30/17 Exam Time: 1509 REPORT STATUS: Signed PROCEDURE: CT ABDOMEN AND PELVIS WITH CONTRAST COMPARISON: None. INDICATIONS: RLQ PAIN TECHNIQUE : Multidetector CT scanning of the abdomen and pelvis was performed after the administration of 100 cc Isovue 370 IV, 30 cc Gastrografin orally. Coronal and sagittal reformations were obtained. Routine protocol performed. Total exam DLP: 213.33 mGy CM FINDINGS: Lung bases: Lung bases clear. Heart size normal. Liver: There is a dominant mass in the posterior right lobe of the liver measuring 7.1 x 5.3 x 6.0 cm. The a 1.9 x 2.0 x 2.1 cm mass is seen adjacent to the falciform ligament, a 1.7 x 0.8 x 1.2 cm mass is seen in the anterior left lobe and a 2.7 x 2.3 x 2.3 cm mass is seen in the dome of the right lobe. There is also a 1.1 x 1.1 x 1.2 cm mass in the dome of the right lobe. These masses are not characterized on this single phase examination. There is no intrahepatic bile duct dilatation. Biliary: The gallbladder is not visualized, likely representing cholecystectomy although there are no surgical clips present. Spleen: No splenomegaly or splenic mass. Pancreas: No mass or duct dilatation. Adrenal Glands: No adrenal nodules Kidneys: No mass, hydronephrosis or calculus. Symmetric enhancement. Gastrointestinal: There is small bowel dilatation with air and stool seen throughout the colon. Findings suggest ileus. Vasculature: Abdominal aorta, IVC and portal system appear unremarkable. Peritoneum/Retroperitoneum: There is moderate pneumoperitoneum. There is a moderate volume of diffuse ascites in the abdomen extending to the pelvis. Bladder: Urinary bladder appears unremarkable. Reproductive organs: The uterus is anteverted. Adnexa are not well seen. Musculoskeletal: No acute or suspicious bony lesion. Superficial surrounding soft tissue unremarkable. The findings were discussed with Dr. Hassan in the emergency room on at 4:40 PM. CONCLUSION: 1. Pneumoperitoneum, ascites and ileus suggesting viscus perforation. Precise source is undetermined. 2. Several low density masses are seen the liver with minimal peripheral patchy enhancement. These are not characterized on this single phase scan although they may represent hepatic hemangiomata. Recommend liver mass protocol CT or MRI for further evaluation. Dictated by: Zora Herrera M.D. on 10/30 at 16:46 Electronically approved by: Zora Herrera M.D. on 2016 at 16:46 Dictated By: ZORA HERRERA MD 1646 Transcribed By: RUDY on 10/30/176 COPY TO: HOMER ZHU NP
== END | disposition home or self-care (01) ==
LOC: OR 06:41
PROVIDERS: ATTEND Internal Medicine Gastroenterology
DX: K59.00 Constipation, unspecified (principal); K57.30 Diverticulosis of large intestine without perforation or abscess without bleeding; B19.20 Unspecified viral hepatitis C without hepatic coma; Z88.8 Allergy status to other drugs, medicaments and biological substances; Z01.810 Encounter for preprocedural cardiovascular examination; Z87.891 Personal history of nicotine dependence; Z80.0 Family history of malignant neoplasm of digestive organs
CPT/HCPCS: 45378; 81025; 93005; J2001; J2250

== ENCOUNTER 2018-02-25 07:07 | Inpatient (IN) | payer OTHER ==
[2018-02-21 14:37] LABS: BASOPHILS # (AUTO) 0.1 (0.0-0.1); BASOPHILS % 0.9 % (0.0-1.0); EOSINOPHILS # (AUTO) 0.4 (0.0-0.4); EOSINOPHILS % 5.6 % (0.0-6.0); HEMATOCRIT 39.6 % (34.2-44.1); HEMOGLOBIN 13.3 g/dL (12.0-16.0); LYMPHOCYTES # (AUTO) 1.8 (1.0-3.2); LYMPHOCYTES % 27.7 % (18.0-39.1); MEAN CORPUSCULAR HGB CONC 33.6 g/dL (31-35); MEAN CORPUSCULAR VOLUME 89.4 fL (81-99); MONOCYTES # (AUTO) 0.4 (0.2-0.8); MONOCYTES % 6.5 % (4.4-11.3); NEUTROPHILS # (AUTO) 3.9 (2.1-6.9); NEUTROPHILS % 59.1 % (38.7-80.0); PLATELET COUNT 269 x10e3/uL (140-360); RED BLOOD COUNT 4.43 x10e6/uL (3.6-5.1); RED CELL DISTRIBUTION WIDTH 13.5 % (11.7-14.4)
[2018-02-21 14:51] LABS: ANION GAP 10.8 mmol/L (8-16); BLOOD UREA NITROGEN 26 mg/dL (7-26); BUN/CREATININE RATIO 31 (6-25); CALCIUM 9.2 mg/dL (8.4-10.2); CARBON DIOXIDE 30 mmol/L (22-29); CHLORIDE 104 mmol/L (98-107); CREATININE, SERUM 0.83 mg/dL (0.57-1.11); EST GLOMERULAR FILTRATION RATE > 60 ML/MIN (60-); GLUCOSE 61 mg/dL (74-118); POTASSIUM 3.8 mmol/L (3.5-5.1); SODIUM 141 mmol/L (136-145)
[~2018-02-25] VITALS: Ht 165.1 cm; Wt 59.4 kg
[~2018-02-25 07:07] MED LIST changes: +CEFOXITIN SOD 1 GM VIAL ONE; -LIDOCAINE HCL 2% LOCAL INJ 5 ML SDV VIAL INJ ONE; -MIDAZOLAM HCL 2 MG/2 ML VIAL ONE; -PROPOFOL IV EMULSION 10 MG/ML 50 ML VIAL ONE
[2018-02-25] MEDS ORDERED: BACITRACIN 50,000 UNIT VIAL ONE (08:18)
[2018-02-25] MEDS ORDERED: BUPIVACAINE HCL 0.5% INJ 30 ML VIAL INJ ONE (08:18)
[2018-02-25] MEDS ORDERED: MIDAZOLAM HCL 2 MG/2 ML VIAL ONE (09:56)
[2018-02-25] MEDS ORDERED: MORPHINE SULFATE INJ 10 MG/ML ONE (09:56)
[2018-02-25] MEDS ORDERED: FENTANYL CITRATE/PF 100MCG/2 ML INJ ONE (09:56)
[2018-02-25] MEDS ORDERED: NALOXONE HCL INJ 0.4 MG/ML AMP IV PRN (10:00)
[2018-02-25] MEDS ORDERED: ACETAMINOPHEN 1000 MG/100 ML IV PRN (10:00)
[2018-02-25] MEDS ORDERED: HYDROMORPHONE 0.2MG/ML-SOD CHL 30ML PCA SYRINGE IV PRN (10:00)
[2018-02-25] MEDS ORDERED: ATROPINE SULFATE 0.1 MG/ML 10ML SYR ONE (10:39)
[2018-02-25] MEDS ORDERED: HYDROMORPHONE 0.2MG/ML-SOD CHL 30ML PCA SYRINGE IV ONE (10:56)
--- NOTE | 2018-02-25 11:00 | Operative Report ---
DATE OF PROCEDURE: February 25, 2018 PREOPERATIVE DIAGNOSIS: Perforated colon, status post colostomy. POSTOPERATIVE DIAGNOSIS: Perforated colon, status post colostomy. PROCEDURE: Closure of colostomy with partial colon resection and lysis of adhesions. STRUCTURAL WELDER: None. ANESTHESIA: General. INDICATIONS AND FINDINGS: Patient is a 52-year-old female who 2-1/2 months ago underwent surgery for perforated colon with fecal peritonitis. At surgery, she was found to have some adhesions involving the small bowel. The distal colon, which had been sutured to the proximal colon just inside the abdomen, was no longer in this position and was found to be in the upper pelvis. Small bowel otherwise appeared normal. Colon otherwise appeared normal. TECHNIQUE: After adequate general endotracheal anesthesia, with the patient in the supine position, the abdomen was prepped and draped in a sterile fashion with Linwood solution. Starting at the area of the stoma, incision was made around the stoma and carried into the subcutaneous tissue. The proximal colon was freed from the fascia and into the peritoneal cavity. However, the distal colon, which at the time of the initial surgery had been was left sutured to the proximal colon, was no longer in this position and could not be identified. Because of this, a midline incision was made and the peritoneal cavity entered. The small-bowel adhesions were lysed, and the distal colon was identified. It had been marked with long sutures of 3-0 Prolene. The distal colon was in the upper pelvis. It was freed from adhesions. Then the proximal colon was delivered into the peritoneal cavity. The area of colon and the stoma was resected. The mesentery was divided between clamps and ligated with 2-0 silk. The colon was divided with a MIKA stapler. Anastomosis was made between the proximal and distal colon using a MIKA stapler and TL-60 stapler. One bleeding vessel was suture ligated 3-0 silk. The wound was inspected for hemostasis, which was seen to be adequate. It was irrigated with saline. All fluid aspirated and inspected once again for hemostasis, which was seen to be adequate. The midline fascia was closed with a running suture of #1 PDS, and the fascia at the colostomy site was closed with running suture of #0 PDS. Subcutaneous tissue at each wound was irrigated with saline. Each wound was then infiltrated with 1/2 percent Marcaine. Skin of each wound was then closed with ida. Sterile dressing was applied. Patient tolerated the procedure well. Estimated blood loss was 100 mL. There were no complications. All counts were correct. Patient was taken to the recovery room in satisfactory condition. Job#: [id number]
[2018-02-25 12:39] VITALS: BP 116/56
[2018-02-25] MEDS: CEFOXITIN SOD 1 GM VIAL IV SCH ×2 (12:45→20:00)
[2018-02-25] MEDS ORDERED: CEFOXITIN 1GM/ DEXTROSE 50ML 50 ML IV SCH (13:00)
[2018-02-25 13:20] VITALS: BP 116/56
[2018-02-25] MEDS: DEXTROSE 5%/LACTATED RINGERS 1,000 ML IV SCH ×2 (15:10→17:50)
[2018-02-25] MEDS ORDERED: LIDOCAINE HCL 2% JELLY 5 ML TUBE ONE (17:34)
[2018-02-25] MEDS ORDERED: ROCURONIUM BROMIDE 10 MG/ML 5ML VIAL ONE (17:34)
[2018-02-25] MEDS ORDERED: ONDANSETRON HCL INJ 2 MG/ML VIAL ONE (17:34)
[2018-02-25] MEDS ORDERED: DEXAMETHASONE SOD PHOS INJ 4 MG/ML VIAL ONE (17:34)
[2018-02-25] MEDS ORDERED: LIDOCAINE HCL 2% LOCAL INJ 5 ML SDV VIAL INJ ONE (17:34)
[2018-02-25] MEDS ORDERED: SEVOFLURANE INHAL SOLN 250 ML PEN BTL ONE (17:34)
[2018-02-25] MEDS ORDERED: PROPOFOL IV EMULSION 10 MG/ML 20 ML VIAL ONE (17:34)
[2018-02-25 20:00] VITALS: BP 99/44
[2018-02-25] MEDS: ONDANSETRON HCL INJ 2 MG/ML VIAL IV PRN (21:03)
[2018-02-26] VITALS (7 sets, daily range): BP systolic 86–99; BP diastolic 42–51
[2018-02-26] MEDS: DEXTROSE 5%/LACTATED RINGERS 1,000 ML IV SCH ×3 (01:50→18:31)
[2018-02-26] MEDS: CEFOXITIN SOD 1 GM VIAL IV SCH ×4 (01:53→18:30)
[2018-02-26] MEDS: ONDANSETRON HCL INJ 2 MG/ML VIAL IV PRN ×2 (01:53→06:35)
[2018-02-26 06:53] LABS: BASOPHILS % 0.4 % (0.0-1.0); EOSINOPHILS % 0.2 % (0.0-6.0); HEMATOCRIT 39.8 % (34.2-44.1); HEMOGLOBIN 13.1 g/dL (12.0-16.0); LYMPHOCYTES # (AUTO) 1.5 (1.0-3.2); LYMPHOCYTES % 16.2 % (18.0-39.1); MEAN CORPUSCULAR HEMOGLOBIN 29.2 pg (28-32); MEAN CORPUSCULAR HGB CONC 32.9 g/dL (31-35); MEAN CORPUSCULAR VOLUME 88.8 fL (81-99); MONOCYTES % 11.2 % (4.4-11.3); NEUTROPHILS # (AUTO) 6.4 (2.1-6.9); NEUTROPHILS % 71.8 % (38.7-80.0); PLATELET COUNT 265 x10e3/uL (140-360); RED BLOOD COUNT 4.48 x10e6/uL (3.6-5.1); RED CELL DISTRIBUTION WIDTH 13.5 % (11.7-14.4)
[2018-02-26 07:25] LABS: ANION GAP 9.1 mmol/L (8-16); CALCIUM 8.5 mg/dL (8.4-10.2); CREATININE, SERUM 1.04 mg/dL (0.57-1.11); POTASSIUM 4.1 mmol/L (3.5-5.1)
[2018-02-26] MEDS: HYDROMORPHONE 0.2MG/ML-SOD CHL 30ML PCA SYRINGE IV PRN ×2 (07:42→20:27)
[2018-02-26] MEDS: ONDANSETRON HCL 4 MG ORAL DISINTEGRATING TAB SL PRN (18:31)
[2018-02-27] VITALS: BP 99/48
[2018-02-27] MEDS: CEFOXITIN SOD 1 GM VIAL IV SCH ×4 (00:25→19:30)
[2018-02-27 04:00] VITALS: BP 95/46
[2018-02-27] MEDS: DEXTROSE 5%/LACTATED RINGERS 1,000 ML IV SCH ×2 (07:33→23:00)
[2018-02-27 08:24] VITALS: BP 108/50
[2018-02-27] MEDS: HYDROMORPHONE 0.2MG/ML-SOD CHL 30ML PCA SYRINGE IV PRN (15:56)
[2018-02-27 15:59] VITALS: BP 101/49
[2018-02-27 19:46] VITALS: BP 108/54
[2018-02-28] VITALS: BP 98/52
[2018-02-28] MEDS: CEFOXITIN SOD 1 GM VIAL IV SCH ×3 (01:15→13:59)
[2018-02-28 04:00] VITALS: BP 88/52
[2018-02-28] MEDS ORDERED: SODIUM CHLORIDE FLUSH 10 ML SYR INJ PRN (06:45)
[2018-02-28] MEDS ORDERED: HYDROCODONE/APAP 7.5MG-325MG 1 EA TAB PO PRN (06:45)
[2018-02-28 08:29] VITALS: BP 112/53
[2018-02-28 08:35] VITALS: BP 112/53
[2018-02-28] MEDS: ONDANSETRON HCL 4 MG ORAL DISINTEGRATING TAB SL PRN ×2 (09:44→13:59)
[2018-02-28 11:54] VITALS: BP 121/56
[2018-02-28 16:31] VITALS: BP 96/52
--- NOTE | 2018-02-28 16:53 | Discharge Summary ---
ADMISSION DIAGNOSIS: Perforated colon status post colostomy. DISCHARGE DIAGNOSIS: Perforated colon status post colostomy. PRINCIPAL PROCEDURE: Closure of colostomy and partial colon resection and lysis of adhesions. HISTORY OF PRESENT ILLNESS: Patient is a 53-year-old female who about 2 months ago underwent surgery for perforated colon with fecal peritonitis. She had a colostomy done at that time and she was admitted to the hospital for elective reversal of the colostomy. HOSPITAL COURSE: Patient admitted to the hospital same day as surgery and underwent partial colon resection with reversal of colostomy and lysis of adhesions. Postoperatively the patient was stable. Started on liquid diet the first postop day. Bowel function returned to normal, diet was advanced. On the third postop day she was having bowel movements. She was discharged home on the third postop day. At time of discharge she was afebrile, wounds were cleaned, tolerating a diet. DISCHARGE MEDICATIONS: [place] and Zofran. She will follow up with Dr. Baird approximately one week after discharge. Sent home in satisfactory condition on regular diet. NATALIIA BAIRD MD Job#: [id number] DG
[2018-02-28] MEDS ORDERED: ZOFRAN ODT4 MG PO (17:20)
[2018-02-28] MEDS ORDERED: NORCO 5-325 TA1 EACH PO (17:20)
== END 2018-02-28 17:48 | disposition home or self-care (01) | DRG 331 ==
LOC: OR 07:07 → MED/SURG 10:27
PROVIDERS: ADMIT Surgery; ATTEND Surgery
PROC: 0WQFXZ2 Repair Abdominal Wall, Stoma, External Approach (ICD-10-PCS; 2018-02-25)
PROC: 0DBN0ZZ Excision of Sigmoid Colon, Open Approach (ICD-10-PCS; principal; 2018-02-25 09:30)
DX: Z43.3 Encounter for attention to colostomy (principal); B19.20 Unspecified viral hepatitis C without hepatic coma; Z87.891 Personal history of nicotine dependence
CPT/HCPCS: 36415; 80048; 81025; 85025; 88305; 88307; 93005; J0694; J1100; J2001; J2250; J2270; J2405; J7120